=== PATIENT | female | born 1970 | race Caucasian/White ===

== ENCOUNTER 2016-05-27 14:55 | Emergency (ER) | payer OTHER ==
[~2016-05-27] VITALS: Wt 81.6 kg
[~2016-05-27 14:55] MED LIST: ABILIFY10 MG PO; AMBIEN10 MG PO; AMOXICILLIN500 M2 PO; AMOXICILLIN500 MG PO; AMOXIL500 MG PO; ANAPROX DS550 MG PO; ANTIDIARRHEAL; ATARAX25 MG PO; ATIVAN1 MG PO; AUGMENTIN 875 M1 TAB PO; AUGMENTIN 875875 MG PO; BACTRIM DS 8001 TA1 PO; BENADRYL25 MG PO; BIAXIN500 MG PO; CIPRO500 MG PO; CLARITIN10 MG PO; CORTISPORIN 1%7.5 M1 OP; CYMBALTA30 M1 PO; DAYPRO600 M1 PO; DICLOFENAC SOD50 MG PO; DURICEF500 MG PO; ELIMITE 5%60 GM PO; FIORICET 325 MG1 TAB PO; FLEXERIL10 MG PO; FLONASE ALLERG9.9 ML NS; GABAPENTIN300 MG PO; GLUCOTROL5 MG; GLUCOTROL5 MG PO; Glucotrol PO; HYDROCODONE BIT1 T11 PO; IBU-8800 MG PO; IBU600 MG PO; IBU800 M1 PO; K-Dur 20MEQ20 MEQ PO; KEFLEX500 MG PO; LANTUS100 U/ML; LANTUS100 U/ML SC; LISINOPRIL10 MG PO; LISINOPRIL2.5 MG PO; LOPRESSOR50 M1 PO; LOPRESSOR50 MG PO; MEDROL DOSEPAK4 MG PO; METFORMIN500 MG; METFORMIN850 MG PO; METOPROLOL SR50 MG PO; METOPROLOL100 MG PO; MOTRIN600 MG PO; MOTRIN800 MG PO; NAPROSYN500 MG PO; NAPROXEN220 MG PO; NEURONTIN300 MG PO; NOVOLIN 701 UNIT/0.0 SC; NOVOLOG 70/30 M10 ML SC; Nystatin Ointme30 GM T; PRAVACHOL40 MG PO; PROVENTIL0.09 MG/AC IH; SEPTRA DS 800 M1 TAB PO; TESSALON PERLE200 MG PO; TRAMADOL HCL50 MG PO; TYLENOL W/CODEI1 TA2 PO; ULTRAM50 MG PO; VICODIN 5/500 505 MG PO; VICODIN 500 MG-1 TAB PO; VOLTAREN50 M1 PO; WELLBUTRIN XL150 MG PO; WELLBUTRIN XL300 MG PO; Wellbutrin Xl150 MG PO; ZESTRIL5 MG PO; ZITHROMAX Z PA250 MG PO; ZITHROMAX250 MG PO; ZYRTEC10 M1 PO; ZYRTEC10 MG PO; ZYVOX600 MG PO
[2016-05-27] MEDS ORDERED: FLONASE ALLERG9.9 ML NAS (15:16)
[2016-05-27] MEDS ORDERED: VIBRAMYCIN100 MG PO (15:16)
[2016-05-27] MEDS ORDERED: AMOXICILLIN500 M2 PO (16:00)
== END 2016-05-27 16:06 | disposition home or self-care (01) ==
LOC: ED 14:55
DX: J02.0 Streptococcal pharyngitis (principal); Z90.49 Acquired absence of other specified parts of digestive tract; Z79.4 Long term (current) use of insulin; Z91.030 Bee allergy status; Z91.018 Allergy to other foods

== ENCOUNTER 2016-07-15 15:22 | Emergency (ER) | payer OTHER ==
[~2016-07-15] VITALS: Ht 167.6 cm; Wt 81.6 kg
[~2016-07-15 15:22] MED LIST changes: +FLONASE ALLERG9.9 ML NAS; +VIBRAMYCIN100 MG PO
[2016-07-15] MEDS ORDERED: HYDROCODONE BIT1 T11 PO (18:05)
[2016-07-15] MEDS ORDERED: CLINDAMYCIN HC300 MG PO (18:05)
== END 2016-07-15 16:03 | disposition home or self-care (01) ==
LOC: ED 15:22
DX: L03.012 Cellulitis of left finger (principal); Z90.49 Acquired absence of other specified parts of digestive tract; Z90.710 Acquired absence of both cervix and uterus; Z98.890 Other specified postprocedural states; Z91.030 Bee allergy status; Z88.8 Allergy status to other drugs, medicaments and biological substances

== ENCOUNTER 2016-08-15 16:03 | Emergency (ER) | payer OTHER ==
[~2016-08-15] VITALS: Wt 90.7 kg
[~2016-08-15 16:03] MED LIST changes: +CLINDAMYCIN HC300 MG PO
== END 2016-08-15 17:16 | disposition home or self-care (01) ==
LOC: ED 16:03
DX: M25.512 Pain in left shoulder (principal); Z91.030 Bee allergy status; Z88.8 Allergy status to other drugs, medicaments and biological substances; Z91.018 Allergy to other foods; Z79.899 Other long term (current) drug therapy

== ENCOUNTER 2016-09-28 13:17 | Emergency (ER) | payer OTHER ==
[~2016-09-28] VITALS: Wt 90.7 kg
== END 2016-09-28 14:50 | disposition home or self-care (01) ==
LOC: ED 13:17
DX: S90.122A Contusion of left lesser toe(s) without damage to nail, initial encounter (principal); E13.10 Other specified diabetes mellitus with ketoacidosis without coma; Z91.030 Bee allergy status; Z88.8 Allergy status to other drugs, medicaments and biological substances; Z91.018 Allergy to other foods; Z79.899 Other long term (current) drug therapy; Z79.4 Long term (current) use of insulin; W01.0XXA Fall on same level from slipping, tripping and stumbling without subsequent striking against object, initial encounter; Y93.89 Activity, other specified; Y92.89 Other specified places as the place of occurrence of the external cause; Y99.8 Other external cause status

== ENCOUNTER 2017-01-19 09:58 | Emergency (ER) | payer OTHER ==
[~2017-01-19] VITALS: Ht 167.6 cm; Wt 77.1 kg
[2017-01-19] MEDS ORDERED: ZYRTEC10 MG PO ×2 (10:24→10:29)
[2017-01-19] MEDS ORDERED: ZITHROMAX250 MG PO ×2 (10:24→10:29)
== END 2017-01-19 10:50 | disposition home or self-care (01) ==
LOC: ED 09:58
DX: J01.90 Acute sinusitis, unspecified (principal); Z91.030 Bee allergy status; Z88.8 Allergy status to other drugs, medicaments and biological substances; Z90.710 Acquired absence of both cervix and uterus; Z90.49 Acquired absence of other specified parts of digestive tract

== ENCOUNTER 2017-02-05 16:51 | Emergency (ER) | payer OTHER ==
[~2017-02-05] VITALS: Wt 78.0 kg
[2017-02-05] MEDS ORDERED: CYCLOBENZAPRINE5 M3 PO (18:42)
== END 2017-02-05 17:33 | disposition home or self-care (01) ==
LOC: ED 16:51
DX: S09.90XA Unspecified injury of head, initial encounter (principal); M62.830 Muscle spasm of back; Z90.49 Acquired absence of other specified parts of digestive tract; Z98.890 Other specified postprocedural states; Z79.899 Other long term (current) drug therapy; Z79.4 Long term (current) use of insulin; Z91.030 Bee allergy status; Z91.018 Allergy to other foods; Z88.8 Allergy status to other drugs, medicaments and biological substances; W22.8XXA Striking against or struck by other objects, initial encounter; Y93.89 Activity, other specified; Y92.89 Other specified places as the place of occurrence of the external cause; Y99.9 Unspecified external cause status

== ENCOUNTER 2017-02-09 16:24 | Emergency (ER) | payer OTHER ==
[~2017-02-09] VITALS: Ht 167.6 cm; Wt 78.0 kg
[~2017-02-09 16:24] MED LIST changes: +CYCLOBENZAPRINE5 M3 PO
[2017-02-09] MEDS ORDERED: Motrin,Rufen800 MG PO (17:39)
== END 2017-02-09 17:45 | disposition home or self-care (01) ==
LOC: ED 16:24
DX: S93.602A Unspecified sprain of left foot, initial encounter (principal); Z90.49 Acquired absence of other specified parts of digestive tract; Z98.890 Other specified postprocedural states; Z90.710 Acquired absence of both cervix and uterus; Z79.4 Long term (current) use of insulin; Z91.030 Bee allergy status; Z88.8 Allergy status to other drugs, medicaments and biological substances; Z91.018 Allergy to other foods; X50.1XXA Overexertion from prolonged static or awkward postures, initial encounter; Y93.89 Activity, other specified; Y92.89 Other specified places as the place of occurrence of the external cause; Y99.9 Unspecified external cause status

== ENCOUNTER 2017-02-24 10:52 | Emergency (ER) | payer OTHER ==
[~2017-02-24] VITALS: Ht 167.6 cm; Wt 80.7 kg
[~2017-02-24 10:52] MED LIST changes: +Motrin,Rufen800 MG PO
[2017-02-24] MEDS ORDERED: ASPIR LOW81 MG PO (11:01)
[2017-02-24] MEDS ORDERED: CYMBALTA20 M1 PO (11:02)
[2017-02-24] MEDS ORDERED: ABILIFY2 MG PO (11:02)
[2017-02-24] MEDS ORDERED: NEURONTIN100 MG PO (11:02)
== END 2017-02-24 12:35 | disposition home or self-care (01) ==
LOC: ED 10:52
DX: S60.011A Contusion of right thumb without damage to nail, initial encounter (principal); Z90.49 Acquired absence of other specified parts of digestive tract; Z90.710 Acquired absence of both cervix and uterus; Z98.890 Other specified postprocedural states; Z79.82 Long term (current) use of aspirin; Z79.4 Long term (current) use of insulin; Z79.899 Other long term (current) drug therapy; Z91.030 Bee allergy status; Z91.018 Allergy to other foods; Z88.8 Allergy status to other drugs, medicaments and biological substances; W01.198A Fall on same level from slipping, tripping and stumbling with subsequent striking against other object, initial encounter; Y93.89 Activity, other specified; Y92.89 Other specified places as the place of occurrence of the external cause; Y99.9 Unspecified external cause status

== ENCOUNTER 2017-03-24 13:18 | Emergency (ER) | payer OTHER ==
[~2017-03-24] VITALS: Ht 167.6 cm; Wt 78.5 kg
[~2017-03-24 13:18] MED LIST changes: +ABILIFY2 MG PO; +ASPIR LOW81 MG PO; +CYMBALTA20 M1 PO; +NEURONTIN100 MG PO
[2017-03-24 14:12] LABS: BASO # 0.1 10*3/uL (0.0-0.1); BASO % 0.6 % (0.0-1.0); EOS # 0.2 10*3/uL (0.0-0.4); EOS % 2.1 % (1.0-4.0); HEMATOCRIT 35.1 % (37.0-47.0); HEMOGLOBIN 12.2 g/dl (12.0-16.0); LYMPH % 21.3 % (27.0-41.0); MEAN CELL VOLUME 94.9 fl (81.0-99.0); MEAN CORPUSCULAR HGB CONC 34.8 g/dl (33.0-37.0); MEAN PLATELET VOLUME 10.1 fl (9.6-12.3); MONO # 0.7 10*3/uL (0.1-1.0); MONO % 7.2 % (3.0-9.0); NEUT # 6.6 10*3/uL (2.3-7.9); NEUT % 68.6 % (47.0-73.0); PLATELET COUNT AUTOMATED 205 10*3/uL (130-400); WHITE BLOOD COUNT 9.6 10*3/uL (4.8-10.8)
[2017-03-24 14:33] LABS: BUN 18 mg/dl (7-24); CHLORIDE 101 mmol/L (98-107); CREATININE 0.76 mg/dL (0.55-1.02); POTASSIUM 4.2 mmol/L (3.5-5.1); SODIUM 138 mmol/L (136-145)
== END 2017-03-24 15:13 | disposition home or self-care (01) ==
LOC: ED 13:18
PROVIDERS: Emergency Medicine
DX: S92.515A Nondisplaced fracture of proximal phalanx of left lesser toe(s), initial encounter for closed fracture (principal); S79.922A Unspecified injury of left thigh, initial encounter; E11.65 Type 2 diabetes mellitus with hyperglycemia; Z79.4 Long term (current) use of insulin; Z79.84 Long term (current) use of oral hypoglycemic drugs; Z90.49 Acquired absence of other specified parts of digestive tract; Z79.82 Long term (current) use of aspirin; Z91.030 Bee allergy status; Z91.018 Allergy to other foods; W10.9XXA Fall (on) (from) unspecified stairs and steps, initial encounter; Y93.89 Activity, other specified; Y92.099 Unspecified place in other non-institutional residence as the place of occurrence of the external cause; Y99.8 Other external cause status

== ENCOUNTER 2017-04-10 11:10 | Emergency (ER) | payer OTHER ==
[~2017-04-10] VITALS: Ht 167.6 cm; Wt 78.5 kg
[2017-04-10] MEDS ORDERED: LIPITOR20 MG PO (11:28)
[2017-04-10] MEDS ORDERED: CLINDAMYCIN HC300 MG PO (12:38)
== END 2017-04-10 12:47 | disposition home or self-care (01) ==
LOC: ED 11:10
DX: K08.89 Other specified disorders of teeth and supporting structures (principal); Z91.030 Bee allergy status; Z91.018 Allergy to other foods; Z88.8 Allergy status to other drugs, medicaments and biological substances; Z79.82 Long term (current) use of aspirin; Z79.899 Other long term (current) drug therapy

== ENCOUNTER 2017-06-23 16:56 | Emergency (ER) | payer OTHER ==
[~2017-06-23] VITALS: Wt 99.8 kg
[~2017-06-23 16:56] MED LIST changes: +LIPITOR20 MG PO
[2017-06-23] MEDS ORDERED: NAPROSYN500 MG PO (17:02)
[2017-06-23] MEDS ORDERED: AMOXICILLIN500 M2 PO (17:02)
== END 2017-06-23 17:21 | disposition home or self-care (01) ==
LOC: ED 16:56
DX: S01.512A Laceration without foreign body of oral cavity, initial encounter (principal); K08.89 Other specified disorders of teeth and supporting structures; Z90.49 Acquired absence of other specified parts of digestive tract; Z90.710 Acquired absence of both cervix and uterus; Z79.82 Long term (current) use of aspirin; Z79.4 Long term (current) use of insulin; Z88.8 Allergy status to other drugs, medicaments and biological substances; Z91.018 Allergy to other foods; X58.XXXA Exposure to other specified factors, initial encounter; Y93.89 Activity, other specified; Y92.89 Other specified places as the place of occurrence of the external cause; Y99.9 Unspecified external cause status

== ENCOUNTER 2017-07-29 11:23 | Emergency (ER) | payer OTHER ==
[~2017-07-29] VITALS: Ht 167.6 cm; Wt 81.6 kg
[2017-07-29] MEDS ORDERED: ZITHROMAX250 MG PO (12:27)
== END 2017-07-29 13:30 | disposition home or self-care (01) ==
LOC: ED 11:23
DX: H66.92 Otitis media, unspecified, left ear (principal); E11.9 Type 2 diabetes mellitus without complications; E78.00 Pure hypercholesterolemia, unspecified; I10 Essential (primary) hypertension; Z90.49 Acquired absence of other specified parts of digestive tract; Z90.710 Acquired absence of both cervix and uterus; Z79.82 Long term (current) use of aspirin; Z79.899 Other long term (current) drug therapy; Z79.4 Long term (current) use of insulin; Z88.8 Allergy status to other drugs, medicaments and biological substances

== ENCOUNTER 2017-09-11 19:24 | Emergency (ER) | payer OTHER ==
[~2017-09-11] VITALS: Ht 167.6 cm; Wt 89.8 kg
[2017-09-11] MEDS ORDERED: NAPROSYN500 MG PO (21:16)
== END 2017-09-11 21:21 | disposition home or self-care (01) ==
LOC: ED 19:24
DX: M25.511 Pain in right shoulder (principal); Z91.030 Bee allergy status; Z88.8 Allergy status to other drugs, medicaments and biological substances; Z91.018 Allergy to other foods; Z79.899 Other long term (current) drug therapy; Z79.82 Long term (current) use of aspirin

== ENCOUNTER → 2017-11-10 | Outpatient (CLI) | payer OTHER ==
[~2017-11-10] MED LIST changes: +OMNICEF300 MG PO; +PROAIR HFA8.5 GM INH; +TESSALON PERLE100 M1 PO
[2017-11-10 09:50] LABS: HEMATOCRIT 38.5 % (37.0-47.0); HEMOGLOBIN 12.9 g/dl (12.0-16.0); MEAN CELL VOLUME 95.5 fl (81.0-99.0); MEAN CORPUSCULAR HGB CONC 33.5 g/dl (33.0-37.0); MEAN PLATELET VOLUME 10.4 fl (9.6-12.3); RED BLOOD COUNT 4.03 10*6/uL (4.10-5.10); RED CELL DISTRI WIDTH 12.5 % (0-14.5); WHITE BLOOD COUNT 10.5 10*3/uL (4.8-10.8)
[2017-11-10 10:16] LABS: ALBUMIN 3.8 gm/dl (3.1-4.5); BUN 12 mg/dl (7-24); CHLORIDE 107 mmol/L (98-107); CHOLESTEROL 157 mg/dL (<200); CREATININE 0.78 mg/dL (0.55-1.02); POTASSIUM 4.3 mmol/L (3.5-5.1); SGOT/AST 22 IU/L (3-35); SGPT/ALT 38 U/L (12-78); SODIUM 141 mmol/L (136-145); TOTAL PROTEIN 7.5 gm/dL (6.4-8.2); TRIGLYCERIDES 237 mg/dl (<150); VLDL CHOLESTEROL 47 mg/dL (6-40)
[2017-11-10 10:24] LABS: ALKALINE PHOSPHATASE 150 U/L (45-117); HDL CHOLESTEROL 36 mg/dl (40-60); LDL CHOLESTEROL 74 mg/dL (9-159)
== END | disposition home or self-care (01) ==
LOC: LAB 09:17
PROVIDERS: Internal Medicine
DX: E11.9 Type 2 diabetes mellitus without complications (principal); I10 Essential (primary) hypertension; E55.9 Vitamin D deficiency, unspecified

== ENCOUNTER 2017-11-29 06:02 | Emergency (ER) | payer OTHER ==
[~2017-11-29] VITALS: Ht 167.6 cm; Wt 86.2 kg
[~2017-11-29 06:02] MED LIST changes: -PROAIR HFA8.5 GM INH; -TESSALON PERLE100 M1 PO
[2017-11-29] MEDS ORDERED: CLARITIN10 MG PO (06:49)
[2017-11-29] MEDS ORDERED: PROAIR HFA8.5 GM INH (06:49)
[2017-11-29] MEDS ORDERED: TESSALON PERLE100 M1 PO (06:49)
== END 2017-11-29 06:52 | disposition home or self-care (01) ==
LOC: ED 06:02
DX: J32.9 Chronic sinusitis, unspecified (principal); H92.09 Otalgia, unspecified ear; E11.9 Type 2 diabetes mellitus without complications; Z90.710 Acquired absence of both cervix and uterus; Z91.030 Bee allergy status; Z88.8 Allergy status to other drugs, medicaments and biological substances; Z91.018 Allergy to other foods; Z79.2 Long term (current) use of antibiotics; Z79.899 Other long term (current) drug therapy; Z79.82 Long term (current) use of aspirin; Z79.84 Long term (current) use of oral hypoglycemic drugs; Z90.49 Acquired absence of other specified parts of digestive tract

== ENCOUNTER 2018-08-18 05:07 | Emergency (ER) | payer OTHER ==
[~2018-08-18] VITALS: Ht 167.6 cm; Wt 91.2 kg
[~2018-08-18 05:07] MED LIST changes: +ATORVASTATIN CA20 M1 PO; +BASAG SOL SQ; +GLUCOTROL10 MG PO; +OMEPRAZOLE D/R20 MG PO; +PROAIR HFA8.5 GM INH; +TESSALON PERLE100 M1 PO
[2018-08-18] MEDS ORDERED: AUGMENTIN 875875 MG PO (06:30)
[2018-08-21] MEDS ORDERED: CLINDAMYCIN HC300 MG PO (23:36)
[2018-10-10] MEDS ORDERED: ROBITUSSIN5 ML PO (21:02)
[2018-10-10] MEDS ORDERED: TESSALON PERLE100 MG PO (21:02)
[2018-10-15] MEDS ORDERED: CLEOCIN HCL300 MG PO (21:05)
== END 2018-08-18 06:43 | disposition home or self-care (01) ==
LOC: ED 05:07
DX: H66.91 Otitis media, unspecified, right ear (principal); F31.9 Bipolar disorder, unspecified; I11.0 Hypertensive heart disease with heart failure; I50.9 Heart failure, unspecified; E78.00 Pure hypercholesterolemia, unspecified; E11.65 Type 2 diabetes mellitus with hyperglycemia; Z79.4 Long term (current) use of insulin; Z79.82 Long term (current) use of aspirin; Z87.891 Personal history of nicotine dependence; Z98.890 Other specified postprocedural states; Z90.710 Acquired absence of both cervix and uterus; Z90.49 Acquired absence of other specified parts of digestive tract; Z79.899 Other long term (current) drug therapy; Z91.030 Bee allergy status; Z88.8 Allergy status to other drugs, medicaments and biological substances; Z91.018 Allergy to other foods

== ENCOUNTER 2018-10-02 19:27 | Emergency (ER) | payer OTHER ==
[~2018-10-02] VITALS: Ht 167.6 cm; Wt 90.7 kg
[2018-10-02] MEDS ORDERED: PROAIR HFA8.5 GM INH (20:13)
[2018-10-02] MEDS ORDERED: TESSALON PERLE100 M1 PO (20:13)
[2018-10-02] MEDS ORDERED: PREDNISONE20 M1 PO (20:13)
== END 2018-10-02 20:16 | disposition home or self-care (01) ==
LOC: ED 19:27
DX: J40 Bronchitis, not specified as acute or chronic (principal); J02.9 Acute pharyngitis, unspecified; Z79.899 Other long term (current) drug therapy; Z79.82 Long term (current) use of aspirin; Z88.8 Allergy status to other drugs, medicaments and biological substances; Z87.891 Personal history of nicotine dependence; Z91.030 Bee allergy status; Z91.018 Allergy to other foods

== ENCOUNTER 2018-10-26 12:20 | Emergency (ER) | payer OTHER ==
[~2018-10-26] VITALS: Ht 170.1 cm; Wt 90.7 kg
[~2018-10-26 12:20] MED LIST changes: +CLEOCIN HCL300 MG PO; +PREDNISONE20 M1 PO; +ROBITUSSIN5 ML PO; +TESSALON PERLE100 MG PO
[2018-10-26] MEDS ORDERED: TRULICITY1.5 MG/0.5 SC (12:49)
[2018-10-26] MEDS ORDERED: LOPRESSOR100 M1 PO (13:31)
== END 2018-10-26 13:34 | disposition home or self-care (01) ==
LOC: ED 12:20
DX: I10 Essential (primary) hypertension (principal); Z76.0 Encounter for issue of repeat prescription; Z91.030 Bee allergy status; Z91.048 Other nonmedicinal substance allergy status; Z91.018 Allergy to other foods; Z88.8 Allergy status to other drugs, medicaments and biological substances; Z79.899 Other long term (current) drug therapy; Z79.82 Long term (current) use of aspirin; Z90.49 Acquired absence of other specified parts of digestive tract; Z90.710 Acquired absence of both cervix and uterus; Z87.891 Personal history of nicotine dependence

== ENCOUNTER 2018-12-17 11:57 | Emergency (ER) | payer OTHER ==
[~2018-12-17] VITALS: Wt 90.7 kg
[~2018-12-17 11:57] MED LIST changes: +LOPRESSOR100 M1 PO; +TRULICITY1.5 MG/0.5 SC
[2018-12-17] MEDS ORDERED: Motrin,Rufen800 MG PO (14:08)
[2018-12-17] MEDS ORDERED: NORCO 5-325 TA1 EACH PO (14:09)
== END 2018-12-17 14:14 | disposition home or self-care (01) ==
LOC: ED 11:57
DX: S60.041A Contusion of right ring finger without damage to nail, initial encounter (principal); E78.5 Hyperlipidemia, unspecified; E11.9 Type 2 diabetes mellitus without complications; I50.9 Heart failure, unspecified; I11.0 Hypertensive heart disease with heart failure; Z79.899 Other long term (current) drug therapy; Z79.82 Long term (current) use of aspirin; Z91.030 Bee allergy status; Z88.8 Allergy status to other drugs, medicaments and biological substances; Z91.018 Allergy to other foods; Z87.891 Personal history of nicotine dependence; W19.XXXA Unspecified fall, initial encounter; Y93.89 Activity, other specified; Y92.89 Other specified places as the place of occurrence of the external cause; Y99.8 Other external cause status

== ENCOUNTER 2019-01-25 16:12 | Emergency (ER) | payer OTHER ==
[~2019-01-25] VITALS: Ht 167.6 cm; Wt 86.6 kg
[~2019-01-25 16:12] MED LIST changes: +NORCO 5-325 TA1 EACH PO
[2019-01-25] MEDS ORDERED: Motrin,Rufen800 MG PO (18:02)
== END 2019-01-25 18:22 | disposition home or self-care (01) ==
LOC: ED 16:12
DX: S86.911A Strain of unspecified muscle(s) and tendon(s) at lower leg level, right leg, initial encounter (principal); S93.601A Unspecified sprain of right foot, initial encounter; E11.9 Type 2 diabetes mellitus without complications; I10 Essential (primary) hypertension; Z91.030 Bee allergy status; Z91.048 Other nonmedicinal substance allergy status; Z88.8 Allergy status to other drugs, medicaments and biological substances; Z91.018 Allergy to other foods; Z79.899 Other long term (current) drug therapy; Z79.82 Long term (current) use of aspirin; Z90.710 Acquired absence of both cervix and uterus; Z90.49 Acquired absence of other specified parts of digestive tract; Z87.891 Personal history of nicotine dependence; W01.0XXA Fall on same level from slipping, tripping and stumbling without subsequent striking against object, initial encounter; Y93.01 Activity, walking, marching and hiking; Y92.89 Other specified places as the place of occurrence of the external cause; Y99.8 Other external cause status

== ENCOUNTER 2019-03-21 18:57 | Inpatient (IN) | payer OTHER ==
[~2019-03-21] VITALS: Ht 167.6 cm; Wt 86.8 kg
[2019-03-21 19:12] VITALS: BP 157/94
[2019-03-21 19:38] LABS: BASO % 0.3 % (0.0-1.0); EOS # 0.1 10*3/uL (0.0-0.4); EOS % 0.4 % (1.0-4.0); HEMATOCRIT 36.7 % (37.0-47.0); HEMOGLOBIN 12.3 g/dl (12.0-16.0); LYMPH % 8.2 % (27.0-41.0); MEAN CELL VOLUME 92.2 fl (81.0-99.0); MEAN CORPUSCULAR HGB 30.9 pg (27.0-31.0); MEAN CORPUSCULAR HGB CONC 33.5 g/dl (33.0-37.0); MONO # 1.1 10*3/uL (0.1-1.0); MONO % 8.4 % (3.0-9.0); NEUT # 10.5 10*3/uL (2.3-7.9); NEUT % 82.4 % (47.0-73.0); PLATELET COUNT AUTOMATED 254 10*3/uL (130-400); RED BLOOD COUNT 3.98 10*6/uL (4.10-5.10); RED CELL DISTRI WIDTH 13.5 % (0-14.5); WHITE BLOOD COUNT 12.7 10*3/uL (4.8-10.8)
[2019-03-21 19:55] LABS: ALBUMIN 3.3 gm/dl (3.1-4.5); CREATININE 1.29 mg/dL (0.55-1.02); TOTAL PROTEIN 8.4 gm/dL (6.4-8.2)
[2019-03-21 20:00] VITALS: BP 150/97
[2019-03-21 21:46] LABS: INTERNATIONAL NORM RATIO 0.9 (2.0-3.5)
[2019-03-21 21:59] LABS: TROPONIN I < 0.015 ng/ml (<0.045)
[2019-03-21 22:30] VITALS: BP 150/97
--- NOTE | 2019-03-21 22:30 | NUR ---
A 48, admitted to 4E, under the services of HUBER Posada DO with a diagnosis of SEPSIS PNEUMONITIS. Chief complaint is CHILLS, N/V, COUGH, LEAL. Patient arrived via stretcher from ER. Monitor applied. Initial assessment completed. Vital signs taken and recorded. HUBER POSADA DO notified of admission to the unit. Orders received. See assessment for past medical history, medications and allergies. Patient and/or family oriented to unit. Clothing/patient valuable form completed. ALENA JUNG
--- NOTE | 2019-03-21 22:41 | NUR ---
Pt denies any wounds at this time.
[2019-03-21] MEDS ORDERED: HYDROCHLOROTHIA25 M1 PO (22:59)
[2019-03-21] MEDS ORDERED: VITAMIN D3125 MCG PO (23:00)
--- NOTE | 2019-03-21 23:02 | NUR ---
PATIENT HAS SCABS TO BLE KNEES AND SCABBED AREA TO BRIDGE OF NOSE FROM FALL ON ICE.
[2019-03-22] VITALS: BP 135/96
--- NOTE | 2019-03-22 03:59 | NUR ---
MEDICATIONS APPEAR EFFECTIVE FOR PAIN AND NAUSEA, PT RESTING.
--- NOTE | 2019-03-22 07:00 | NUR ---
JENNIFER DUONG [id number] Please refer to the physician's history and physical for past medical history, comorbid conditions, and allergies. Diagnosis: SEPSIS PNEUMONITIS Negrito Score: 22,LOW OR NO RISK WOUND DESCRIPTIONS: Wound Number: 1 Location of the wound: RIGHT KNEE Type of wound: ABRASION Thickness: Partial Size: 4.0CM X 4.4CM X 0.1CM Tunneling: NONE Undermining: NONE Sinus Tract: NONE Presence of Exudate: Serosanguineous Amount: Light Color: Red Odor: None Periwound Skin Appearance: Erythema Wound edges: APPROXIMATED Pain (associated with wound): NONE AT TIME OF ASSESSMENT How does patient state this happened? PT STATED THAT SHE FELL AND THIS OCCURED Wound Number: 2 Location of the wound: LEFT KNEE Type of wound: ABRASION Thickness: Partial Size: 1.6CM X 4.3CM X 0.1CM Tunneling: NONE Undermining: NONE Sinus Tract: NONE Presence of Exudate: Serosanguineous Amount: Light Color: Red Odor: None Periwound Skin Appearance: Erythema Wound edges: APPROXIMATED Pain (associated with wound): NONE AT TIME OF ASSESSMENT How does patient state this happened? PT STATED THAT SHE FELL AND THIS OCCURED Wound Number: 3 Location of the wound: BRIDGE OF NOSE Type of wound: ABRASION Thickness: Partial Size: 0.9CM X 0.2CM X <0.1CM Tunneling: NONE Undermining: NONE Sinus Tract: NONE Presence of Exudate: NONE Amount: None Color: Red Odor: None Periwound Skin Appearance: Normal Wound edges: APPROXIMATED Pain (associated with wound): NONE AT TIME OF ASSESSMENT How does patient state this happened? PT STATED THAT SHE FELL AND THIS OCCURED Wound Number: 4 Location of the wound: LEFT BREAST Thickness: Full Size: 1.0CM X 2.0CM X 0.1CM Tunneling: NONE Undermining: NONE Sinus Tract: NONE Presence of Exudate: Serosanguineous Amount: Light Color: Red, YELLOW Odor: None Periwound Skin Appearance: multiple scars noted Wound edges: APPROXIMATED Pain (associated with wound): NONE AT TIME OF ASSESSMENT How does patient state this happened? PT STATED THIS IS FROM MEDICATION CHANGES AND BELIEVES IT COULD BE FROM THE ROBITUSSIN Patient refused this nurse to view right breast or buttocks patient was guarded during assessment kept stating she was cold at time of assessment. Surface the patient is resting on: Isoflex SKIN PREVENTION RECOMMENDATION: 1. Pressure redistribution support surface as appropriate 2. Elevate heels 3. Remove boots/TEDS every shift and reapply 4. Head of bed 30 degrees as tolerated 5. Assess nutrition and hydration 6. Manage moisture 7. Avoid the use of containment devices while in bed 8. Use absorptive products on surfaces limit layers of linens on bed 9. Turn and reposition every 1-2 hours in bed and every 1 hour in chair as tolerated 10. Weight shifts every 15 minutes while up in chair 11. Offloading with pillows or device to keep heels elevated off bed 12. Monitor skin at least every shift 13. Inspect under medical devices twice a day WOUND TREATMENT RECOMMENDATIONS: Partial thickness guidelines: Cleanse right knee, left knee and left breast with nss and apply sureprep around the wound therahoney to wound bed and cover with optifoam gentle every 2 days and prn for soiling. Partial thickness guidelines: Cleanse bridge of nose with nss and apply sureprep around the wound therahoney to wound bed and cover with bandaid every 2 days and prn for soiling. Patient stated she will care for these areas when she returns home with her son and doesn't want to follow up in an outpatient center.
[2019-03-22 07:02] LABS: BASO % 0.3 % (0.0-1.0); EOS # 0.1 10*3/uL (0.0-0.4); EOS % 0.7 % (1.0-4.0); HEMATOCRIT 35.8 % (37.0-47.0); HEMOGLOBIN 11.9 g/dl (12.0-16.0); LYMPH # 1.6 10*3/uL (1.3-4.4); LYMPH % 16.8 % (27.0-41.0); MEAN CORPUSCULAR HGB 30.6 pg (27.0-31.0); MEAN CORPUSCULAR HGB CONC 33.2 g/dl (33.0-37.0); MEAN PLATELET VOLUME 11.3 fl (9.6-12.3); MONO # 0.9 10*3/uL (0.1-1.0); MONO % 9.6 % (3.0-9.0); NEUT % 72.5 % (47.0-73.0); PLATELET COUNT AUTOMATED 255 10*3/uL (130-400); RED BLOOD COUNT 3.89 10*6/uL (4.10-5.10); RED CELL DISTRI WIDTH 13.9 % (0-14.5); WHITE BLOOD COUNT 9.6 10*3/uL (4.8-10.8)
[2019-03-22 07:21] LABS: ALBUMIN 2.9 gm/dl (3.1-4.5); BUN 12 mg/dl (7-24); CHLORIDE 100 mmol/L (98-107); CHOLESTEROL 193 mg/dL (<200); CREATININE 0.81 mg/dL (0.55-1.02); POTASSIUM 3.5 mmol/L (3.5-5.1); SGOT/AST 97 IU/L (3-35); SGPT/ALT 113 U/L (12-78); SODIUM 138 mmol/L (136-145); TRIGLYCERIDES 262 mg/dl (<150); VLDL CHOLESTEROL 52 mg/dL (6-40)
[2019-03-22 07:32] LABS: FREE T4 1.61 ng/dl (0.76-1.46); HDL CHOLESTEROL 17 mg/dl (40-60); LDL CHOLESTEROL 124 mg/dL (9-159)
[2019-03-22 07:33] LABS: ALKALINE PHOSPHATASE 1036 U/L (45-117)
[2019-03-22 08:00] VITALS: BP 146/96
--- NOTE | 2019-03-22 09:00 | NUR ---
Sewing Machine Mechanic in to talk to patient. Patient states lives at home with family. There are 4 steps in the home. Physician: carmella frederick [facility] Home health services: none Patient's level of ADLs: INDEPENDENT Patient has working utilities: all working DME: none Follow-up physician's appointment after d/c: will be made by hospitalist nurse director upon discharge Does patient want to access PORTAL?: no Discharge plan discussed with patient, she lives at home with family, she states she is independent in adls and ambulation she states she will return home when medically stable and denies any home needs, case management will follow. PORFIRIO MAKI
--- NOTE | 2019-03-22 09:21 | NUR ---
Dr. Sanchez notified of wound care recommendations.
[2019-03-22 12:00] VITALS: BP 126/74
--- NOTE | 2019-03-22 12:56 | NUR ---
PT STATES THAT SHE DOES NOT WANT TO SEE THE GI WHILE SHE IS HERE. SHE STATES THAT SHE FEELS FINE NOW AND THAT SHE JUST WANTS TO GO HOME. I MADE DR HORN AWARE OF THIS.
--- NOTE | 2019-03-22 14:06 | NUR ---
patient wanting to leave AMA. patient aware of the consequences of leaving prior to discharge. dr. Sanchez notified. AMA paper signed. heplock removed from left arm, chief passenger ship steward/stewardess removed.
== END 2019-03-22 14:06 | disposition left against medical advice (07) | DRG 720 ==
LOC: ED 18:57 → EDHOLD 21:19 → 4E 21:19
PROVIDERS: Internal Medicine; Physician Assistant; ADMIT Internal Medicine
DX: A41.9 Sepsis, unspecified organism (principal); J18.9 Pneumonia, unspecified organism; N17.0 Acute kidney failure with tubular necrosis; I50.32 Chronic diastolic (congestive) heart failure; R65.20 Severe sepsis without septic shock; R74.0 Nonspecific elevation of levels of transaminase and lactic acid dehydrogenase [LDH]; E80.6 Other disorders of bilirubin metabolism; E87.1 Hypo-osmolality and hyponatremia; E78.5 Hyperlipidemia, unspecified; I11.0 Hypertensive heart disease with heart failure; E44.1 Mild protein-calorie malnutrition; J45.909 Unspecified asthma, uncomplicated; G89.29 Other chronic pain; K21.9 Gastro-esophageal reflux disease without esophagitis; E66.9 Obesity, unspecified; F31.9 Bipolar disorder, unspecified; E87.6 Hypokalemia; Z53.29 Procedure and treatment not carried out because of patient's decision for other reasons; E87.8 Other disorders of electrolyte and fluid balance, not elsewhere classified; E11.65 Type 2 diabetes mellitus with hyperglycemia; R74.8 Abnormal levels of other serum enzymes; Z79.4 Long term (current) use of insulin; Z91.030 Bee allergy status; Z88.8 Allergy status to other drugs, medicaments and biological substances; Z91.018 Allergy to other foods; Z91.09 Other allergy status, other than to drugs and biological substances; Z90.49 Acquired absence of other specified parts of digestive tract; Z90.710 Acquired absence of both cervix and uterus; Z87.891 Personal history of nicotine dependence; Z82.49 Family history of ischemic heart disease and other diseases of the circulatory system; Z82.3 Family history of stroke; Z91.81 History of falling; Z79.899 Other long term (current) drug therapy; Z79.82 Long term (current) use of aspirin; Z68.30 Body mass index [BMI] 30.0-30.9, adult

== ENCOUNTER 2019-04-18 16:07 | Emergency (ER) | payer OTHER ==
[~2019-04-18] VITALS: Ht 167.6 cm; Wt 82.6 kg
[~2019-04-18 16:07] MED LIST changes: +HYDROCHLOROTHIA25 M1 PO; +VITAMIN D3125 MCG PO
[2019-04-18] MEDS ORDERED: OFLOXACIN OTIC5 ML OPH (17:45)
== END 2019-04-18 17:37 | disposition home or self-care (01) ==
LOC: ED 16:07
DX: H61.21 Impacted cerumen, right ear (principal); E11.9 Type 2 diabetes mellitus without complications; I10 Essential (primary) hypertension; Z90.710 Acquired absence of both cervix and uterus; Z91.030 Bee allergy status; Z91.048 Other nonmedicinal substance allergy status; Z88.8 Allergy status to other drugs, medicaments and biological substances; Z91.018 Allergy to other foods; Z79.899 Other long term (current) drug therapy; Z79.82 Long term (current) use of aspirin; Z87.891 Personal history of nicotine dependence

== ENCOUNTER 2019-06-19 10:50 | Inpatient (IN) | payer OTHER ==
[~2019-06-19] VITALS: Ht 167.6 cm; Wt 77.1 kg
[2019-06-19] VITALS (7 sets, daily range): BP systolic 85–120; BP diastolic 52–88
[~2019-06-19 10:50] MED LIST changes: +OFLOXACIN OTIC5 ML OPH
[2019-06-19 11:53] LABS: BASO # 0.1 10*3/uL (0.0-0.1); BASO % 0.4 % (0.0-1.0); EOS # 0.1 10*3/uL (0.0-0.4); EOS % 0.5 % (1.0-4.0); LYMPH # 2.2 10*3/uL (1.3-4.4); LYMPH % 15.6 % (27.0-41.0); MEAN CELL VOLUME 89.8 fl (81.0-99.0); MEAN CORPUSCULAR HGB 28.9 pg (27.0-31.0); MEAN CORPUSCULAR HGB CONC 32.2 g/dl (33.0-37.0); MEAN PLATELET VOLUME 10.7 fl (9.6-12.3); NEUT # 10.5 10*3/uL (2.3-7.9); NEUT % 76.1 % (47.0-73.0); NUCLEATED RED BLOOD CELL 0.1 % (0.0-0.0); PLATELET COUNT AUTOMATED 322 10*3/uL (130-400); RED BLOOD COUNT 4.12 10*6/uL (4.10-5.10); RED CELL DISTRI WIDTH 14.4 % (0-14.5); WHITE BLOOD COUNT 13.8 10*3/uL (4.8-10.8)
[2019-06-19 12:14] LABS: ACT PARTIAL THROMBO TIME 35.6 SECONDS (20.0-32.1); INTERNATIONAL NORM RATIO 1.1 (2.0-3.5)
[2019-06-19 12:20] LABS: ALBUMIN 2.7 gm/dl (3.1-4.5); CREATININE 1.44 mg/dL (0.55-1.02); TOTAL PROTEIN 9.8 gm/dL (6.4-8.2)
[2019-06-19 12:30] LABS: POTASSIUM 2.3 mmol/L (3.5-5.1); TROPONIN I 0.095 ng/ml (<0.045)
--- NOTE | 2019-06-19 13:08 | NUR ---
CONTACTED NURSE AND SHE JUST WENT TO LUNCH SO SHE REQUESTED 30 MINUTES FOR HER TO GET BACK AND THEN I CAN TAKE THE PT UP.
--- NOTE | 2019-06-19 13:45 | NUR ---
A 49, admitted to , under the services of JACK Navarrete DO with a diagnosis of DIZZINESS, ARK, HYPOTENSION. Chief complaint is DIZZINESS. Patient arrived via ambulatory from ER. Monitor applied. Initial assessment completed. Vital signs taken and recorded. JACK NAVARRETE DO notified of admission to the unit. Orders received. See assessment for past medical history, medications and allergies. Patient and/or family oriented to unit. [facility] visitation policy reviewed. Clothing/patient valuable form completed. LINO PARKS
[2019-06-19] MEDS ORDERED: GLUCOPHAGE1000 MG PO (15:17)
[2019-06-19] MEDS ORDERED: BASAG SOL IJ (15:18)
[2019-06-19] MEDS ORDERED: TRINTELLIX20 MG PO (15:23)
--- NOTE | 2019-06-19 15:25 | NUR ---
DR. YEN'S OFFICE NOTIFIED OF CONSULT.
--- NOTE | 2019-06-19 22:00 | NUR ---
PATIENTS FINGERSTICK BGM IS 151. PATIENT DOES NOT WANT INSULING D/T BGM BEING RECENTLY LOW AND DOES NOT WANT TO "BOTTOM OUT" IN THE AM.
[2019-06-20] VITALS (7 sets, daily range): BP systolic 106–136; BP diastolic 70–92
--- NOTE | 2019-06-20 06:03 | NUR ---
DR. HORN INFORMED OF CH TROP OF 0.072. NO NEW ORDERS AT THIS TIME.
[2019-06-20 06:13] LABS: BASO # 0.1 10*3/uL (0.0-0.1); BASO % 0.5 % (0.0-1.0); EOS # 0.1 10*3/uL (0.0-0.4); EOS % 0.9 % (1.0-4.0); HEMATOCRIT 33.7 % (37.0-47.0); LYMPH # 2.1 10*3/uL (1.3-4.4); LYMPH % 19.8 % (27.0-41.0); MEAN CELL VOLUME 90.3 fl (81.0-99.0); MEAN PLATELET VOLUME 10.8 fl (9.6-12.3); MONO % 9.3 % (3.0-9.0); NEUT # 7.4 10*3/uL (2.3-7.9); NEUT % 69.2 % (47.0-73.0); PLATELET COUNT AUTOMATED 251 10*3/uL (130-400); RED BLOOD COUNT 3.73 10*6/uL (4.10-5.10); RED CELL DISTRI WIDTH 14.6 % (0-14.5); WHITE BLOOD COUNT 10.7 10*3/uL (4.8-10.8)
[2019-06-20 06:20] LABS: ALBUMIN 2.5 gm/dl (3.1-4.5); POTASSIUM 2.6 mmol/L (3.5-5.1)
[2019-06-20 06:35] LABS: BILIRUBIN, DIRECT 1.2 mg/dL (0.0-0.2); CREATININE 1.21 mg/dL (0.55-1.02); FREE T4 1.47 ng/dl (0.76-1.46); PHOSPHOROUS 3.4 mg/dL (2.5-4.9); THYROID STIM HORMONE (HS) 0.78 uIU/ml (0.358-4.75); TOTAL PROTEIN 8.9 gm/dL (6.4-8.2)
--- NOTE | 2019-06-20 07:02 | NUR ---
INFORMED OF +BC OF AEROBIC OF GNB. STATED TO REPEAT BLOOD CULTURES.
[2019-06-20 07:45] LABS: VITAMIN D, 25-HYDROXY 77.8 ng/mL (30-100)
--- NOTE | 2019-06-20 09:30 | NUR ---
Plush Cutter in to talk to patient. Patient states lives at home with son. There are 16 steps in the home. Physician: carmella frederick [facility]: [facility] Home health services: none Patient's level of ADLs: INDEPENDENT Patient has working utilities: all working DME: cane Follow-up physician's appointment after d/c: will be made by hospitalist nurse director upon discharge Does patient want to access PORTAL?: no Discharge plan discussed with patient, she states she lives at home with her son, she is independent in adls, is independent in ambulation, has a cane if needs to use it. she states she will return home when medically stable, discussed with her VNA and educated her on their services, she declines any services at this time, case management will follow. PORFIRIO MAKI
--- NOTE | 2019-06-20 10:40 | NUR ---
ORTHOSTATIC BP OBTAINED FOLLOWING: LYING BP 124/74 PULSE 92, SITTING BP 114/79 PULSE 98, STANDING BP 85/48 PULSE 97. SHE C/O "WOBBLING" WITH STANDING UP.
[2019-06-20 11:13] LABS: BILIRUBIN NEGATIVE (NEGATIVE); CLARITY CLOUDY (CLEAR); COLOR BROWN (YELLOW); GLUCOSE 1+ (NEGATIVE); KETONE NEGATIVE (NEGATIVE)
[2019-06-20 11:14] LABS: BLOOD 3+ (NEGATIVE); LEUKO ESTERASE TRACE (NEGATIVE); NITRITE POSITIVE (NEGATIVE); PH 6.5 (5.0-9.0); UROBILINOGEN 0.2 E.U./dl (0.2-1.0)
[2019-06-20 11:17] LABS: RBC TNTC rbc/hpf (0-2)
[2019-06-20 11:19] LABS: BACTERIA 2+; EPITHELIAL CELLS 31-40; WBC 31-40 wbc/hpf (0-5)
--- NOTE | 2019-06-20 14:47 | NUR ---
OBTAINED ORTHOSTATIC BP FOLLOWS: LYING BP 118/74 PULSE 90, SITTING BP 115/81 PULSE 97, STANDING BP 87/60 PULSE 102. PAITENT C/O "WOBBLING" WITH STANDING, REQUIRES SOMETHING TO HOLD ONTO WHEN FIRST STANDING UP.
--- NOTE | 2019-06-20 19:17 | NUR ---
DR. SUÁREZ NOTIFIED OF MOST RECENT K+ RESULT AFTER ORDERED SUPPLEMENTATION.
[2019-06-21] VITALS: BP 109/73
--- NOTE | 2019-06-21 02:53 | NUR ---
Patient resting quietly with no c/o discomfort. Respirations easy and regular. Vital signs stable. No overt distress. JEAN CARLOS OLVERA
--- NOTE | 2019-06-21 05:15 | NUR ---
PATIENT'S BLOOD SUGAR IS 65. NOTIFIED DR HORN THAT PATIENT IS NPO FOR A STRESS TEST TODAY. HE SAID IT WAS OKAY TO GIVE THE PATIENT SOME ORANGE JUICE.
[2019-06-21 06:06] LABS: ALBUMIN 2.4 gm/dl (3.1-4.5); BUN 19 mg/dl (7-24); CHLORIDE 96 mmol/L (98-107); CREATININE 1.05 mg/dL (0.55-1.02); PHOSPHOROUS 2.8 mg/dL (2.5-4.9); POTASSIUM 3.2 mmol/L (3.5-5.1); SGOT/AST 273 IU/L (3-35); SGPT/ALT 113 U/L (12-78); SODIUM 134 mmol/L (136-145); TOTAL PROTEIN 8.9 gm/dL (6.4-8.2)
--- NOTE | 2019-06-21 06:36 | NUR ---
POSITIVE BLOOD CULTURES FROM 06-19-2019 CALLED FROM [facility]. NOTIFIED DR HORN. REPEAT BLOOD CULTURES DRAWN ON THE .
[2019-06-21 06:46] LABS: ALKALINE PHOSPHATASE 2379 U/L (45-117)
[2019-06-21 08:00] VITALS: BP 110/54; BP 110/64
--- NOTE | 2019-06-21 08:08 | NUR ---
DR. TRUJILLO CALLED TO INQUIRE ABOUT POTASSIUM LEVEL THIS AM. PER DR. TRUJILLO, BOTH DOSES OF 25MEQ K-LYTE TABS ARE TO BE GIVEN PRIOR TO THE STRESS TEST.
--- NOTE | 2019-06-21 11:30 | NUR ---
BEDSIDE GLUCOSE RESULT 57, PATIENT C/O SHAKINESS FROM REMAINING NPO FOR STRESS TEST TODAY. ADMINISTERED AMP OF D50, PATIENT TO CARDIAC REHAB BY WHEELCHAIR AT THIS TIME, NOTIFIED CARDIAC REHAB STAFF OF THE BLOOD SUGAR RESULT, TREATMENT, AND THAT PATIENT NEEDS TO BE RE-TESTED FOR BLOOD SUGAR AT 12NOON.
--- NOTE | 2019-06-21 11:53 | NUR ---
case management talks with patient, she will return home when medically stable and denies any home needs
--- NOTE | 2019-06-21 11:54 | NUR ---
REPEAT BEDSIDE GLUCOSE RESULT 195 AT THIS TIME, OBTAINED THE TEST IN CARDIAC REHAB. NO FURTHER S/S HYPOGLYCEMIA AT THIS TIME, PER PATIENT.
--- NOTE | 2019-06-21 11:55 | NUR ---
RN FROM NURSING UNIT CHECKED BS GLUCOSE AND 195.
[2019-06-21 12:00] VITALS: BP 120/79
--- NOTE | 2019-06-21 12:00 | NUR ---
INFORMED CONSENT OBTAINED FOR LEXISCAN NUCLEAR STRESS TEST WITH DR. TRUJILLO. RESTING EKG NSR WITH A RESTING HR OF 88 WITH BP OF 96/78. LUNGS: DIMINISHED BS IN BASES WITH SPO2 OF 97% ON ROOM AIR. PT COMPLETED A 1:00 LEXISCAN NUCLEAR STRESS TEST RECEIVING LEXISCAN 0.4 MG IV OVER 10 SECONDS. LEG LIFTS AND ISOMETRIC HAND EXERCISES PERFORMED DURING FIRST COUPLE MINUTES OF TESTING. HAD NO CHEST PAIN OR ANY EKG CHANGES. DID C/O NAUSEA THAT SUBSIDED IN RECOVERY. HAD A PEAK HR OF 114 WITH BP OF 90/58. LAST RECOVERY HR OF 108 WITH BP OF 106/60. IN RECOVERY HAD SIPS OF DIET COLA, WATER AND CRACKERS WITH PEANUT BUTTER. AWAITING SCANNING IN STABLE CONDITION.
--- NOTE | 2019-06-21 13:27 | NUR ---
PATIENT RETURNED FROM STRESS TEST, OBTAINING ORTHOSTATIC BLOOD PRESSURES, RESUMING DIET.
--- NOTE | 2019-06-21 13:48 | NUR ---
OBTAINED ORTHOSTATIC BP FOLLOWS: LYING BP 116/75 PULSE 103, SITTING BP 103/73 PULSE 110, STANDING BP 93/55, PULSE 110. PATIENT HAD SOME DIZZINESS WHEN FIRST STANDING UP, SUBSIDES WITH CONTINUED STANDING, PER PATIENT.
[2019-06-21] MEDS ORDERED: AMINOPHYLLIN200 MG PO (14:25)
--- NOTE | 2019-06-21 15:45 | NUR ---
Discharge instructions reviewed with patient. Patient receptive and verbalizes understanding. Follow-up care arranged. Written instructions given to patient. OFFICE NUMBERS TO ALL REQUIRED FOLLOW UP PHYSICIANS PROVIDED, PATIENT TO BILINGUAL LEGAL ASSISTANT RX FROM 3RD FLOOR PHARMACY. AB FUENTES
--- NOTE | 2019-06-21 16:00 | NUR ---
PATIENT DISCHARGED TO ER FRONT LOBBY BY WHEELCHAIR, ACCOMPANIED BY [facility], FOR TRANSPORT HOME BY PRIVATE VEHICLE WITH FAMILY.
== END 2019-06-21 16:48 | disposition home or self-care (01) | DRG 207 ==
LOC: ED 10:50 → EDHOLD 12:50 → 4E 12:50
PROVIDERS: Emergency Medicine; Registered Nurse; ADMIT Internal Medicine
PROC: 4A02XM4 Measurement of Cardiac Total Activity, External Approach (ICD-10-PCS; principal; 2019-06-21)
PROC: 3E073KZ Introduction of Other Diagnostic Substance into Coronary Artery, Percutaneous Approach (ICD-10-PCS; 2019-06-21)
DX: I95.2 Hypotension due to drugs (principal); N17.0 Acute kidney failure with tubular necrosis; I24.8 Other forms of acute ischemic heart disease; E87.6 Hypokalemia; E43 Unspecified severe protein-calorie malnutrition; I50.30 Unspecified diastolic (congestive) heart failure; N30.01 Acute cystitis with hematuria; J45.909 Unspecified asthma, uncomplicated; F31.9 Bipolar disorder, unspecified; G89.29 Other chronic pain; K21.9 Gastro-esophageal reflux disease without esophagitis; E78.5 Hyperlipidemia, unspecified; R74.0 Nonspecific elevation of levels of transaminase and lactic acid dehydrogenase [LDH]; R78.81 Bacteremia; E11.65 Type 2 diabetes mellitus with hyperglycemia; I25.10 Atherosclerotic heart disease of native coronary artery without angina pectoris; E87.1 Hypo-osmolality and hyponatremia; B96.1 Klebsiella pneumoniae [K. pneumoniae] as the cause of diseases classified elsewhere; T50.995A Adverse effect of other drugs, medicaments and biological substances, initial encounter; Y92.89 Other specified places as the place of occurrence of the external cause; Z68.27 Body mass index [BMI] 27.0-27.9, adult; Z90.49 Acquired absence of other specified parts of digestive tract; Z90.710 Acquired absence of both cervix and uterus; Z87.891 Personal history of nicotine dependence; Z82.49 Family history of ischemic heart disease and other diseases of the circulatory system; Z91.030 Bee allergy status; Z88.8 Allergy status to other drugs, medicaments and biological substances; Z91.018 Allergy to other foods; Z79.899 Other long term (current) drug therapy; Z79.84 Long term (current) use of oral hypoglycemic drugs; Z79.4 Long term (current) use of insulin; Z79.82 Long term (current) use of aspirin

== ENCOUNTER → 2019-09-15 | Outpatient (CLI) | payer OTHER ==
[~2019-09-15] MED LIST changes: +AMINOPHYLLIN200 MG PO; +BASAG SOL IJ; +GLUCOPHAGE1000 MG PO; +TRINTELLIX20 MG PO
[2019-09-15 10:43] LABS: HEMATOCRIT 33.4 % (37.0-47.0); MEAN CELL VOLUME 81.9 fl (81.0-99.0); MEAN CORPUSCULAR HGB 25.5 pg (27.0-31.0); MEAN CORPUSCULAR HGB CONC 31.1 g/dl (33.0-37.0); MEAN PLATELET VOLUME 11.4 fl (9.6-12.3); RED BLOOD COUNT 4.08 10*6/uL (4.10-5.10); RED CELL DISTRI WIDTH 19.1 % (0-14.5); WHITE BLOOD COUNT 13.1 10*3/uL (4.8-10.8)
[2019-09-15 11:14] LABS: ALBUMIN 2.1 gm/dl (3.1-4.5); BUN 12 mg/dl (7-24); CHLORIDE 99 mmol/L (98-107); CREATININE 0.86 mg/dL (0.55-1.02); HDL CHOLESTEROL 19 mg/dl (40-60); SGOT/AST 273 IU/L (3-35); SGPT/ALT 111 U/L (12-78); SODIUM 134 mmol/L (136-145); TRIGLYCERIDES 154 mg/dl (<150); VLDL CHOLESTEROL 31 mg/dL (6-40)
[2019-09-15 12:05] LABS: ALKALINE PHOSPHATASE 1654 U/L (45-117); CHOLESTEROL 644 mg/dL (<200); LDL CHOLESTEROL 594 mg/dL (9-159)
== END | disposition home or self-care (01) ==
LOC: LAB 10:21
PROVIDERS: Internal Medicine
DX: I10 Essential (primary) hypertension (principal); R79.89 Other specified abnormal findings of blood chemistry; E78.2 Mixed hyperlipidemia; E11.9 Type 2 diabetes mellitus without complications

== ENCOUNTER 2019-11-13 15:34 | Inpatient (IN) | payer OTHER ==
[~2019-11-13] VITALS: Ht 167.6 cm; Wt 73.1 kg
[2019-11-13 15:46] VITALS: BP 125/81
--- NOTE | 2019-11-13 16:22 | NUR ---
PT REFUSED WHEELCHAIR ASSISTANCE TO GO TO RESTROOM AT THIS TIME STATES "I AM FINE" ENCOURAGED USE OF WC D/T FATIGUE
[2019-11-13 17:25] LABS: HEMATOCRIT 30.2 % (37.0-47.0); MEAN CELL VOLUME 80.3 fl (81.0-99.0); MEAN CORPUSCULAR HGB 25.5 pg (27.0-31.0); MEAN CORPUSCULAR HGB CONC 31.8 g/dl (33.0-37.0); MEAN PLATELET VOLUME 10.8 fl (9.6-12.3); PLATELET COUNT AUTOMATED 203 10*3/uL (130-400); RED BLOOD COUNT 3.76 10*6/uL (4.10-5.10); RED CELL DISTRI WIDTH 20.6 % (0-14.5); WHITE BLOOD COUNT 22.6 10*3/uL (4.8-10.8)
[2019-11-13 17:39] LABS: ALBUMIN 1.5 gm/dl (3.1-4.5); CREATININE 2.3 mg/dL (0.55-1.02); POTASSIUM 3.4 mmol/L (3.5-5.1); TOTAL PROTEIN 8.2 gm/dL (6.4-8.2)
[2019-11-13 17:44] LABS: TOTAL CELLS COUNTED 100 #CELLS
[2019-11-13 17:45] LABS: PLATELET SUFFICIENCY NORMAL (NORMAL); ROULEAUX MARKED
[2019-11-13 17:47] LABS: BILIRUBIN 2+; BLOOD 2+ (NEGATIVE); CLARITY CLOUDY (CLEAR); COLOR DARK YELLOW (YELLOW); GLUCOSE TRACE; KETONE NEGATIVE; PH 5.5 (4.5-8.0)
[2019-11-13 17:48] LABS: BACTERIA 2+; LEUKO ESTERASE TRACE (NEGATIVE); NITRITE NEGATIVE (NEGATIVE)
[2019-11-13 18:26] LABS: INTERNATIONAL NORM RATIO 1.2 (2.0-3.5)
[2019-11-13 19:31] VITALS: BP 133/74
--- NOTE | 2019-11-13 19:31 | NUR ---
PT. RESTING IN BED IN NO DISTRESS. WILL CONT TO MONITOR. CALL LIGHT IN REACH.
--- NOTE | 2019-11-13 21:01 | NUR ---
PT. UP AND TO BATHROOM. WILL CONT TO MONITOR. CALL LIGHT IN REACH.
[2019-11-13 21:50] VITALS: BP 96/52
--- NOTE | 2019-11-13 21:50 | NUR ---
A 49, admitted to [facility], under the services of JACK Navarrete DO with a diagnosis of UTI/ARF/HEPATIC ENCEPHALOPATHY. Chief complaint is DIZZINESS. Patient arrived via stretcher from ER. Monitor applied. Initial assessment completed. Vital signs taken and recorded. JACK NAVARRETE DO notified of admission to the unit. Orders received. See assessment for past medical history, medications and allergies. Patient and/or family oriented to unit. visitation policy reviewed. Clothing/patient valuable form completed. TRENT CINTRON
[2019-11-14 00:12] LABS: CREATININE 2.2 mg/dL (0.55-1.02); POTASSIUM 2.6 mmol/L (3.5-5.1)
[2019-11-14 06:57] LABS: HEMATOCRIT 28.5 % (37.0-47.0); MEAN CELL VOLUME 82.1 fl (81.0-99.0); MEAN CORPUSCULAR HGB 24.8 pg (27.0-31.0); MEAN CORPUSCULAR HGB CONC 30.2 g/dl (33.0-37.0); MEAN PLATELET VOLUME 10.9 fl (9.6-12.3); PLATELET COUNT AUTOMATED 165 10*3/uL (130-400); RED BLOOD COUNT 3.47 10*6/uL (4.10-5.10); RED CELL DISTRI WIDTH 20.8 % (0-14.5); WHITE BLOOD COUNT 23.6 10*3/uL (4.8-10.8)
[2019-11-14 07:01] LABS: CREATININE 2.28 mg/dL (0.55-1.02); TOTAL PROTEIN 7.2 gm/dL (6.4-8.2)
[2019-11-14 07:06] LABS: ALBUMIN 1.2 gm/dl (3.1-4.5)
[2019-11-14 07:12] LABS: THYROID STIM HORMONE (HS) 2.67 uIU/ml (0.358-4.75)
[2019-11-14 07:13] LABS: POTASSIUM 3.7 mmol/L (3.5-5.1)
[2019-11-14 07:22] LABS: TOTAL CELLS COUNTED 100 #CELLS; TOXIC GRANULATION SLIGHT
[2019-11-14 07:23] LABS: PLATELET SUFFICIENCY NORMAL (NORMAL); ROULEAUX MODERATE; VACUOLATION OF NEUTROPHILS SLIGHT
[2019-11-14 08:00] VITALS: BP 115/81
--- NOTE | 2019-11-14 09:00 | NUR ---
Analog Ic Design Engineer in to talk to patient. Patient states lives at home with son, mom, brother and brother's . There are none steps in the home. Physician: [facility] Home health services: none Patient's level of ADLs: MINIMAL ASSIST Patient has working utilities: all working DME: cane, wheelchair Follow-up physician's appointment after d/c: will be made by hospitalist nurse director upon discharge Does patient want to access PORTAL?: no Discharge plan discussed with patient, she states she lives home with family, she is independent in adls and sometimes requires some assistance with ambulation, she has a cane and a wheelchair, she states she has had a fall at home, discussed with her a short term prison for 5 days of rehab and 24 hour care prior to returning home, she declined, also discussed with her VNA and educated her on the services they provide, she also declinied this, she stated she would retun home when discharged and didn't need any of the services, case management will follow. PORFIRIO MAKI
--- NOTE | 2019-11-14 09:00 | NUR ---
Director Of Premium Seat Sales in to talk to patient. Patient states lives at home with son. There are no steps in the home. Physician: carmella frederick [facility]: [facility] Home health services: none Patient's level of ADLs: MINIMAL ASSIST Patient has working utilities: all working DME: cane Follow-up physician's appointment after d/c: will be made by hospitalist nurse director upon discharge Does patient want to access PORTAL?: no Discharge plan discussed with patient, she stated she lives at home with her son, she has a cane to use with ambulation, but has had a fall.discussed with her a short term residential with 5 days of rehab and 24 hour care prior to returning home, she declined stated she was returning home, also discussed VNA and educated on the services they provide, she also declined this, case management will follow and set up any home needs. PORFIRIO MAKI
[2019-11-14] MEDS ORDERED: VRAYLAR4.5 MG PO (09:54)
[2019-11-14] MEDS ORDERED: LANTUS SOL100 UNIT/1 SQ (09:56)
--- NOTE | 2019-11-14 10:38 | NUR ---
NOTIFIED & 'S ANSWERING SERVICES OF CONSULTS.
[2019-11-14 12:00] VITALS: BP 115/77
[2019-11-14 16:00] VITALS: BP 119/88
--- NOTE | 2019-11-14 17:49 | NUR ---
NOTIFIED OF + BLOOD CULTURES.
[2019-11-14 20:00] VITALS: BP 97/62
[2019-11-15] VITALS: BP 118/66
--- NOTE | 2019-11-15 02:32 | NUR ---
24 HR chart check completed.
[2019-11-15 07:30] LABS: ALBUMIN 1.3 gm/dl (3.1-4.5); CREATININE 2.07 mg/dL (0.55-1.02); POTASSIUM 3.2 mmol/L (3.5-5.1); TOTAL PROTEIN 7.1 gm/dL (6.4-8.2)
[2019-11-15 07:54] LABS: BASO % 0.2 % (0.0-1.0); HEMATOCRIT 27.8 % (37.0-47.0); LYMPH # 1.1 10*3/uL (1.3-4.4); LYMPH % 9.4 % (27.0-41.0); MEAN CORPUSCULAR HGB 25.1 pg (27.0-31.0); MEAN CORPUSCULAR HGB CONC 30.9 g/dl (33.0-37.0); MONO # 1.3 10*3/uL (0.1-1.0); MONO % 11.1 % (3.0-9.0); NEUT # 8.9 10*3/uL (2.3-7.9); NEUT % 78.7 % (47.0-73.0); PLATELET COUNT AUTOMATED 163 10*3/uL (130-400); RED BLOOD COUNT 3.43 10*6/uL (4.10-5.10); RED CELL DISTRI WIDTH 20.4 % (0-14.5); WHITE BLOOD COUNT 11.3 10*3/uL (4.8-10.8)
--- NOTE | 2019-11-15 08:42 | NUR ---
PT RESTING IN BED/ NO DISTRESS NOTED. WILL MONITOR
--- NOTE | 2019-11-15 09:00 | NUR ---
case management visits with patient, she states she will return home when discharged and denies any home needs, case management will follow
--- NOTE | 2019-11-15 11:44 | NUR ---
DR ROMERO HERE TO SEE PT
[2019-11-15 12:00] VITALS: BP 109/59
--- NOTE | 2019-11-15 15:45 | NUR ---
Discharge instructions reviewed with patient/family. Patient receptive and verbalizes understanding. Follow-up care arranged. Written instructions given to patient/family. SAULO ZUÑIGA
--- NOTE | 2019-11-15 16:02 | NUR ---
REPORT CALLED TO [facility] .
== END 2019-11-15 15:45 | disposition short-term general hospital (02) | DRG 720 ==
LOC: ED 15:34 → EDHOLD 18:54 → 4NE 18:54
PROVIDERS: Internal Medicine; Nurse Practitioner; Nurse Practitioner Family; ADMIT Internal Medicine; ATTEND Internal Medicine
DX: A41.89 Other specified sepsis (principal); N17.0 Acute kidney failure with tubular necrosis; N39.0 Urinary tract infection, site not specified; E43 Unspecified severe protein-calorie malnutrition; F31.9 Bipolar disorder, unspecified; I10 Essential (primary) hypertension; K21.9 Gastro-esophageal reflux disease without esophagitis; J44.9 Chronic obstructive pulmonary disease, unspecified; R31.9 Hematuria, unspecified; R65.20 Severe sepsis without septic shock; E87.1 Hypo-osmolality and hyponatremia; D50.9 Iron deficiency anemia, unspecified; K70.30 Alcoholic cirrhosis of liver without ascites; E87.6 Hypokalemia; E87.8 Other disorders of electrolyte and fluid balance, not elsewhere classified; E80.6 Other disorders of bilirubin metabolism; E72.20 Disorder of urea cycle metabolism, unspecified; E11.65 Type 2 diabetes mellitus with hyperglycemia; E78.5 Hyperlipidemia, unspecified; G89.29 Other chronic pain; E55.9 Vitamin D deficiency, unspecified; K72.90 Hepatic failure, unspecified without coma; K80.50 Calculus of bile duct without cholangitis or cholecystitis without obstruction; B96.20 Unspecified Escherichia coli [E. coli] as the cause of diseases classified elsewhere; Z79.4 Long term (current) use of insulin; Z88.8 Allergy status to other drugs, medicaments and biological substances; Z91.030 Bee allergy status; Z79.51 Long term (current) use of inhaled steroids; Z90.710 Acquired absence of both cervix and uterus; Z90.49 Acquired absence of other specified parts of digestive tract; Z87.891 Personal history of nicotine dependence; Z82.49 Family history of ischemic heart disease and other diseases of the circulatory system; Z79.82 Long term (current) use of aspirin

== ENCOUNTER 2019-11-20 09:42 | Inpatient (IN) | payer OTHER ==
[~2019-11-20] VITALS: Ht 167.6 cm; Wt 73.5 kg
[~2019-11-20 09:42] MED LIST changes: +LANTUS SOL100 UNIT/1 SQ; +VRAYLAR4.5 MG PO
[2019-11-20 09:48] VITALS: BP 157/81
--- NOTE | 2019-11-20 10:37 | NUR ---
UNABLE TO OBTAIN IV ACCESS. DR PEÑA NOTIFIED.
[2019-11-20 10:54] LABS: BASO % 0.2 % (0.0-1.0); HEMATOCRIT 25.5 % (37.0-47.0); LYMPH # 1.1 10*3/uL (1.3-4.4); LYMPH % 10.1 % (27.0-41.0); MEAN CELL VOLUME 82.3 fl (81.0-99.0); MEAN CORPUSCULAR HGB 25.8 pg (27.0-31.0); MEAN CORPUSCULAR HGB CONC 31.4 g/dl (33.0-37.0); MEAN PLATELET VOLUME 11.3 fl (9.6-12.3); MONO # 0.8 10*3/uL (0.1-1.0); MONO % 6.7 % (3.0-9.0); NEUT # 9.3 10*3/uL (2.3-7.9); NEUT % 82.1 % (47.0-73.0); PLATELET COUNT AUTOMATED 222 10*3/uL (130-400); RED CELL DISTRI WIDTH 20.8 % (0-14.5); WHITE BLOOD COUNT 11.3 10*3/uL (4.8-10.8)
[2019-11-20 11:06] LABS: ACT PARTIAL THROMBO TIME 28.5 SECONDS (20.0-32.1); INTERNATIONAL NORM RATIO 1.1 (2.0-3.5)
[2019-11-20 11:11] LABS: ALBUMIN 1.3 gm/dl (3.1-4.5); BUN 10 mg/dl (7-24); CHLORIDE 99 mmol/L (98-107); CREATININE 0.84 mg/dL (0.55-1.02); SGOT/AST 203 IU/L (3-35); SGPT/ALT 55 U/L (12-78); SODIUM 133 mmol/L (136-145); TOTAL PROTEIN 7.2 gm/dL (6.4-8.2)
[2019-11-20 11:23] LABS: ALKALINE PHOSPHATASE 1101 U/L (45-117)
[2019-11-20 13:19] VITALS: BP 144/82
--- NOTE | 2019-11-20 13:23 | NUR ---
MORPHINE NOT GIVEN , UNABLE TO GAIN IV ACCESS, MICHELET GOULD BIOLOGICAL AIDE NOTIFIED. PT MS.
--- NOTE | 2019-11-20 13:39 | NUR ---
IV WAS ESTABILSED BY DR CASEY CLAROS.
[2019-11-20 14:00] VITALS: BP 147/91
--- NOTE | 2019-11-20 15:29 | NUR ---
PT C/O LEFT LEG PAIN, RATES PAIN 10 ON PAIN SCALE 0-10. MEDICATED WITH MORPHINE IV PER PRN ORDER, SEE EMAR. CALL LIGHT IN REACH.
--- NOTE | 2019-11-20 15:40 | NUR ---
CALLED MICHELET AWARE PT MEDICATIONS NEED ORDERED.
[2019-11-20 15:49] LABS: BILIRUBIN 1+; BLOOD Trace-Lysed (Negative); CLARITY Clear (Clear); COLOR Dark Yellow (Yellow); GLUCOSE 3+; KETONE Trace; LEUKO ESTERASE Negative (Negative); NITRITE Negative (Negative); PH 5.5 (4.5-8.0); SPECIFIC GRAVITY 1.015 (1.001-1.030)
[2019-11-20 16:00] VITALS: BP 151/84
[2019-11-20 16:12] LABS: BACTERIA 1+
--- NOTE | 2019-11-20 16:25 | NUR ---
PT RESTING IN BED WITH EYES CLOSED. RESP-EASY AND REGULAR. MEDICATION SEEMS TO BE EFFECTIVE. CALL LIGHT IN REACH.
--- NOTE | 2019-11-20 16:49 | NUR ---
PT BSG-158. SHE STATES SHE ISN'T ABLE TO EAT HER FOOD. NO COVERAGE GIVEN.
[2019-11-20 19:43] LABS: URINE AMPHETAMINES < 1000 (1000ng/ml); URINE BARBITURATES < 200 (200ng/ml); URINE BENZODIAZEPINES < 200 (200ng/ml); URINE CANNABINOIDS (THC) < 50 (50ng/ml); URINE COCAINE < 300 (300ng/ml); URINE METHADONE < 300 (300ng/ml); URINE OPIATES > 300 (300ng/ml)
[2019-11-20 19:48] LABS: URINE PHENCYCLIDINE < 25 (25ng/ml)
--- NOTE | 2019-11-20 19:53 | NUR ---
IV MORPHINE GIVEN FOR C/O L LEG PAIN RATED 10/10. WILL MONITOR EFFECTIVENESS. CALL LIGHT LEFT IN REACH.
[2019-11-20 20:00] VITALS: BP 129/77
[2019-11-21] VITALS: BP 108/67
--- NOTE | 2019-11-21 00:20 | NUR ---
MEDICATED WITH PRN MORPHINE FOR CO LEFT LEG PAIN RATED A 10/10. WILL ASSESS EFFECTIVENESS.
--- NOTE | 2019-11-21 01:20 | NUR ---
PATIENT SLEEPING. RESPS EASY AND REGULAR. MORPHINE APPEARS TO BE EFFECTIVE.
--- NOTE | 2019-11-21 04:29 | NUR ---
MEDICATED WITH PRN MORPHINE FOR CO LEFT HIP PAIN RATED A 10/10. WILL ASSESS EFFECTIVENESS.
--- NOTE | 2019-11-21 05:29 | NUR ---
PER PATIENT THE MORPHINE HELPED.
[2019-11-21 06:28] LABS: BASO % 0.2 % (0.0-1.0); HEMATOCRIT 22.5 % (37.0-47.0); LYMPH # 1.6 10*3/uL (1.3-4.4); LYMPH % 11.9 % (27.0-41.0); MEAN CELL VOLUME 82.1 fl (81.0-99.0); MEAN CORPUSCULAR HGB 25.5 pg (27.0-31.0); MEAN CORPUSCULAR HGB CONC 31.1 g/dl (33.0-37.0); MEAN PLATELET VOLUME 10.9 fl (9.6-12.3); MONO # 1.1 10*3/uL (0.1-1.0); MONO % 8.5 % (3.0-9.0); NEUT # 10.5 10*3/uL (2.3-7.9); NEUT % 78.8 % (47.0-73.0); PLATELET COUNT AUTOMATED 212 10*3/uL (130-400); RED BLOOD COUNT 2.74 10*6/uL (4.10-5.10); RED CELL DISTRI WIDTH 21.2 % (0-14.5); RETICULOCYTE % 3.33 % (0.50-2.50); WHITE BLOOD COUNT 13.3 10*3/uL (4.8-10.8)
[2019-11-21 06:56] LABS: ALBUMIN 1.1 gm/dl (3.1-4.5); BUN 11 mg/dl (7-24); CHLORIDE 103 mmol/L (98-107); CREATININE 0.83 mg/dL (0.55-1.02); HDL CHOLESTEROL 7 mg/dl (40-60); IRON 43 ug/dL (50-170); POTASSIUM 3.6 mmol/L (3.5-5.1); SGOT/AST 207 IU/L (3-35); SGPT/ALT 52 U/L (12-78); SODIUM 135 mmol/L (136-145); TOTAL IRON BINDING CAPACITY 279 ug/dl (250-450); TOTAL PROTEIN 6.4 gm/dL (6.4-8.2); TRIGLYCERIDES 132 mg/dl (<150); VLDL CHOLESTEROL 26 mg/dL (6-40)
[2019-11-21 07:10] LABS: FREE T4 2.08 ng/dl (0.76-1.46)
--- NOTE | 2019-11-21 07:30 | NUR ---
PT RESTING IN BED. RESPS EASY AND NON LABORED. VSS. WHITE BOARD UPDATED. POC DISCUSSED W PT. A/O X3. PT CONTINUES TO COMPLAIN OF LEFT LEG/HIP PAIN. BRUSING NOTED TO LEFT WHITNEY. PT STATES SHE IS UNSURE WHAT IS CAUSING THE PAIN. WILL CONTINUE TO MONITOR. CALL LIGHT WITHIN REACH.
[2019-11-21 07:44] LABS: CHOLESTEROL 753 mg/dL (<200); LDL CHOLESTEROL 720 mg/dL (9-159)
[2019-11-21 07:45] LABS: ALKALINE PHOSPHATASE 996 U/L (45-117)
[2019-11-21 07:53] LABS: FERRITIN 483.1 ng/mL (10.0-291.0); VITAMIN D, 25-HYDROXY 28.3 ng/mL (30-100)
[2019-11-21 08:00] VITALS: BP 118/72
--- NOTE | 2019-11-21 08:00 | NUR ---
PT CALLING OUT REQUESITNG "PAIN SHOT". EXPLAINED TO PT SHE WAS NOT DUE YET FOR MORPHINE PER THE PHYSICIANS ORDER. PT STATES "GIVE IT TO ME NOW OR IM LEAVING". AGAIN, EXPLAINED TO PT SHE COULD HAVE IT AROUND 8:30. MICHELET GOULD AWARE.
--- NOTE | 2019-11-21 08:22 | NUR ---
Nursing screen received and chart reviewed. Patient admitted from home with L hip pain s/p a fall at home. If patient has a decline in ADLs, transfers, and functional mobility, please send OT orders. Thank you. Katie Calloway, OTR/L
--- NOTE | 2019-11-21 08:29 | NUR ---
PT C/O / ACHING/STABBING LEFT LEG/HIP PAIN. MEDICATED PER ORDER. WILL CONTINUE TO MONITOR FOR RELIEF. RESPS EASY AND NON LABORED. SITTING UP IN BED WATCHING TV. CALL LIGHT WITHIN REACH.
--- NOTE | 2019-11-21 08:42 | NUR ---
PT TAKEN OFF FLOOR FOR MRI
[2019-11-21 08:48] LABS: HEMATOCRIT 23.2 % (37.0-47.0)
--- NOTE | 2019-11-21 09:04 | NUR ---
PT UNABLE TO TOLERATE MRI. MICHELET ON THE FLOOR TO TALK TO PT.
--- NOTE | 2019-11-21 09:20 | NUR ---
MORPHINE APPEARS EFFECTIVE. PT CURRENTLY SLEEPING IN BED. RESPS EASY AND NON LABORED. NO S/S OF DISTRESS NOTED. CALL LIGHT WITHIN REACH.
--- NOTE | 2019-11-21 11:39 | NUR ---
Gasoline Finisher in to talk to patient. Patient states lives at HOME with SON. There are 16 steps in the home. Physician: ANGY [facility]acy: [facility] Home health services: NONE Patient's level of ADLs: INDEPENDENT Patient has working utilities: YES DME: [facility]INA Follow-up physician's appointment after d/c: WILL BE MADE BY HOSPITALIST NURSE DIRECTOR ON DISCHARGE Does patient want to access PORTAL?: NO Discharge plan PT LIVES AT HOME WITH HER SON AND IS INDEPENDENT IN HER CARE, PT STATES HER PLAN IS TO RETURN HOME WHEN MEDICALLY STABLE. PT HAD JUST RETURNED TO ROOM FROM MRI. PT REFUSED TO HAVE MRI DONE, STATES SHE CAN NOT KEEP HER LEG STRAIGHT DUE TO SEVERE PAIN AND THEY TOLD HER SHE HAD TOO FOR MRI.. MICHELET GOULD IN ROOM AND TALKED WITH PT AND IMPORTANCE OF MRI BUT PT STATES SHE CAN'T DO IT. STATES SHE WILL HAVE A RIDE HOME ON DISCHARGE. WILL CONTINUE TO FOLLOW. FREDDIE VALVERDE
[2019-11-21 12:00] VITALS: BP 118/72; BP 148/86
--- NOTE | 2019-11-21 12:21 | NUR ---
INTO OBTAIN CONSENT FOR BLOOD. PT STATES UNDER NO CIRCUMSTANCES SHE DOES NOT WANT A BLOOD TRANSFUSION. WHEN QUESTIONED PT SHE STATED "I JUST DONT WANT IT AND I WANT MY PAIN SHOT". WILL INFORM PRIMARY TEAM.
--- NOTE | 2019-11-21 12:59 | NUR ---
PHYSICAL THERAPY Nursing screen received and chart reviewed. PT order received. Will follow to complete PT evaluation. Thank you. Azucena Soler,PT, DPT
--- NOTE | 2019-11-21 13:45 | NUR ---
OT NOTE Occupational therapy order received, chart reviewed, and attempted to see patient at bedside. Patient declined an OT evaluation at this time stating "I can't walk or get up..I have 11/10 pain." Patient educated on benefits of OT and declined further. Per patient, she has been not been ambulating in the room and is using the bedpan. Will check back at a later date for completion of an OT eval. Thank you. Katie Calloway, OTR/L
--- NOTE | 2019-11-21 14:00 | NUR ---
PT AGREEABLE TO APPLY CIARAN HOSE TO RIGHT LEG WELL BILATERAL SCD'S. STATES SHE WILL NOT PUT ON CIARAN HOSE TO LEFT LEG D/T PAIN. RATIONALE EXPLAINED TO PT. ALSO OUTLINED BRUISES PER MICHELET RUELAS REQUEST.
--- NOTE | 2019-11-21 14:08 | NUR ---
PT C/O 12/01 ACHING LEFT LEG/HIP PAIN.MEDICATED PER ORDER. WILL MONITOR FOR RELIEF. RESPS EASY AND NON LABORED. SITTING IN BED ON CELL PHONE. BED ALARM ON. CALL LIGHT WITHIN REACH.,
--- NOTE | 2019-11-21 14:45 | NUR ---
PT STATES MEDICATION MOSTLY EFFECTIVE.
--- NOTE | 2019-11-21 14:58 | NUR ---
PHYSICAL THERAPY Physical therapy evaluation attempted. Patient refusing skilled PT services at this time due to pain rating of "11 at left hip." Patient reports she is unable to stand and she is using a bedpan. Plan to attempt evaluation again at a later date, per patient request. Thank you. Azucena Soler,PT,DPT
--- NOTE | 2019-11-21 15:01 | NUR ---
PT REFUSED PT/OT
[2019-11-21 16:00] VITALS: BP 128/76
[2019-11-21 20:00] VITALS: BP 117/62
--- NOTE | 2019-11-21 21:34 | NUR ---
PATIENTS BLOOD SUGAR 56 UPON CHECKING IT AT THIS TIME. PATIENT STATES SHE FEELS FINE AND DID NOT EAT MUCH TODAY. PROVIDED ORANGE JUICE AND A POPSICLE AND WILL RECHECK.
--- NOTE | 2019-11-21 22:13 | NUR ---
BSG 118 ON RECHECK AFTER ORANGE JUICE AND POPSICLES.
--- NOTE | 2019-11-21 23:48 | NUR ---
24 HR chart check completed.
[2019-11-22] VITALS (12 sets, daily range): BP systolic 99–157; BP diastolic 55–80
--- NOTE | 2019-11-22 00:45 | NUR ---
RESTING IN BED. RESPS EASY AND REGULAR. VOICES NO CONCERNS. CALL LIGHT IN REACH.
[2019-11-22 06:38] LABS: MEAN CELL VOLUME 83.3 fl (81.0-99.0); MEAN CORPUSCULAR HGB 25.8 pg (27.0-31.0); MEAN CORPUSCULAR HGB CONC 30.9 g/dl (33.0-37.0); MEAN PLATELET VOLUME 10.5 fl (9.6-12.3); PLATELET COUNT AUTOMATED 198 10*3/uL (130-400); RED BLOOD COUNT 2.64 10*6/uL (4.10-5.10); WHITE BLOOD COUNT 19.7 10*3/uL (4.8-10.8)
--- NOTE | 2019-11-22 06:48 | NUR ---
NOTIFIED OF CRITICAL HGB OF 6.8 AND PATIENT STILL NOT WANTING BLOOD.
[2019-11-22 06:53] LABS: ALBUMIN 1.1 gm/dl (3.1-4.5); BUN 13 mg/dl (7-24); CHLORIDE 102 mmol/L (98-107); POTASSIUM 3.3 mmol/L (3.5-5.1); SGOT/AST 231 IU/L (3-35); SGPT/ALT 53 U/L (12-78); SODIUM 136 mmol/L (136-145); TOTAL PROTEIN 6.4 gm/dL (6.4-8.2)
--- NOTE | 2019-11-22 06:55 | NUR ---
BSG 67, ORANGE JUICE PROVIDED.
[2019-11-22 07:07] LABS: ALKALINE PHOSPHATASE 1008 U/L (45-117)
[2019-11-22 07:17] LABS: ROULEAUX MODERATE; TARGET CELLS FEW; TOTAL CELLS COUNTED 100 #CELLS
[2019-11-22 07:18] LABS: PLATELET SUFFICIENCY NORMAL (NORMAL); POLYCHROMASIA SLIGHT
--- NOTE | 2019-11-22 07:56 | NUR ---
PHYSICAL THERAPY Physical Therapy evaluation completed on 5E with full evaluation to follow. Moderate complexity skilled PT evaluation per chart review and evaluation, [id number]. Recommend physical therapy per plan of care and Home Health upon discharge. Thank you for this referral. Azucena Soler,PT,DPT
--- NOTE | 2019-11-22 07:56 | NUR ---
Occupational Therapy evaluation completed on 5 with full eval to follow. Patient in bed and needed encouragement to participate in evaluation. Precautions include fall risk,left hip/thigh pain, IV UE, moderate complexity level [id number]. Recommend OT per POC and SNF to enable safe return home. Patient refuses SNF and insists upon return home w/ son with 16 steps to enter 2nd floor where patient lives/stays and was using a cane prior to admission. Patient is unable to ambulate w/ walker at this time. Thank you for this referral. Patient left in bed, bed alarm, call light and phone in reach. Halley Kerr OTR/l
--- NOTE | 2019-11-22 07:59 | NUR ---
MEDICATED WITH PRN IV MORPHINE FOR C/O LEFT HIP AND LEG PAIN.
--- NOTE | 2019-11-22 08:15 | NUR ---
PATIENT RESTING QUIETLY; PRN PO PHENOBARBITAL EFFECTIVE.
--- NOTE | 2019-11-22 08:24 | NUR ---
PRN IV MORPHINE SOMEWHAT EFFECTIVE, PER PATIENT. LEFT LEG PAIN AGGRAVATED BY PHYSICAL THERAPY EXERCISES.
--- NOTE | 2019-11-22 08:46 | NUR ---
ENMA GOULD IN TO SEE PATIENT AND DISCUSS BLOOD TRANSFUSION. PATIENT IS NOW AGREEABLE TO GETTING A UNIT OF BLOOD FOR LOW HGB, OBTAINED A SECOND CONSENT AND PLACED ON CHART DUE, SHE HAD REFUSED EARLIER AFTER THE FIRST CONSENT WAS SIGNED.
--- NOTE | 2019-11-22 09:38 | NUR ---
UNIT 1 OF 1 PRBC'S INITIATED. DISCUSSED SIGNS/SYMPTOMS OF A REACTION, ENCOURAGED TO REPORT ANY OF THESE IMMEDIATELY, PATIENT VERVALIZES UNDERSTANDING.
--- NOTE | 2019-11-22 11:38 | NUR ---
HAND TREMORS AND TACHYCARDIA NOTED-HRR 108 BPM.
--- NOTE | 2019-11-22 11:39 | NUR ---
PT CONTINUES TO SAY SHE WANTS TO GO HOME ON DISCHARGE. PT IS RECEIVING A UNIT OF BLOOD TODAY FOR LOW HGB. WILL CONTINUE TO FOLLOW. STATES SHE WILL HAVE A RIDE HOME.
--- NOTE | 2019-11-22 11:55 | NUR ---
MEDICATED WITH PRN IV MORPHINE FOR C/O LEFT LEG PAIN.
[2019-11-22 12:15] LABS: BILIRUBIN 2+ (Negative); BLOOD Trace-Lysed (Negative); CLARITY Cloudy (Clear); COLOR Dark Yellow (Yellow); GLUCOSE 1+ (Negative); KETONE Negative (Negative); LEUKO ESTERASE 1+ (Negative); NITRITE Positive (Negative); PH 5.5 (4.5-8.0)
[2019-11-22 12:47] LABS: BACTERIA 2+; EPITHELIAL CELLS 41-50
[2019-11-22 12:48] LABS: YEAST 1+
--- NOTE | 2019-11-22 12:50 | NUR ---
PRN IV MORPHINE EFFECTIVE, PER PATIENT.
--- NOTE | 2019-11-22 13:51 | NUR ---
ENMA GOULD NOTIFIED OF TEMP. 102.9 TEMPORAL. SHE IS ENTERING ORDER FOR TYLENOL.
[2019-11-22 13:59] LABS: HEMATOCRIT 28.1 % (37.0-47.0)
--- NOTE | 2019-11-22 14:02 | NUR ---
ADMINISTERED PO TYLENOL 625MG X 1 ORDERED FOR TEMP. 102.9 TEMPORAL.
--- NOTE | 2019-11-22 17:08 | NUR ---
OBTAINED BEDSIDE GLUCOSE RESULT OF 51. PATIENT HAVING NO S/S HYPOGLYCEMIA, SKIN IS HOT TO TOUCH AND DRY. PROVIDED 4 OZ. ORANGE JUICE AND A POPSICLE. PATIENT STATES SHE IS NOT VERY HUNGRY AND HAS NOT ORDERED A MEAL YET. ENCOURAGED TO ORDER SUPPER AND OBTAINING PRN D50 1 AMP TO ADMINISTER.
--- NOTE | 2019-11-22 17:13 | NUR ---
ADMINISTERED AMP D50 25GM IV AT THIS TIME FOR BEDSIDE GLUCOSE RESULT 51.
--- NOTE | 2019-11-22 17:13 | NUR ---
MEDICATED WITH PRN PO NORCO FOR LET LEG PAIN.
--- NOTE | 2019-11-22 18:00 | NUR ---
PRN PO NORCO EFFECTIVE, PER PATIENT.
--- NOTE | 2019-11-22 18:53 | NUR ---
REPEAT BEDSIDE GLUCOSE 89. PATIENT STATES SHE DID EAT SUPPER ALREADY. PROVIDED POPSICLE.
--- NOTE | 2019-11-22 19:15 | NUR ---
PATIENT RESTING IN BED. STILL CO LEFT HIP PAIN D/T FALL. VOICES NO OTHER CONCERNS. VSS. ASSESSMENT COMPLETE. RESPS EASY AND REGULAR. CALL LIGHT IN REACH.
[2019-11-23] VITALS: BP 125/73
--- NOTE | 2019-11-23 02:11 | NUR ---
24 HR chart check completed.
--- NOTE | 2019-11-23 04:27 | NUR ---
PATIENTS BSG 46, PATIENT STATES SHE FEELS FINE. POPSICLE PROVIDED. PATIENT STATES SHE DOES NOT WANT ANY JUICE OR ANYTHING ELSE. WILL ADMINISTER 50% DEXTROSE.
--- NOTE | 2019-11-23 04:32 | NUR ---
MEDICATED WITH PRN NORCO FOR CO LEFT HIP PAIN. WILL ASSESS EFFECTIVENESS. CALL LIGHT IN REACH.
--- NOTE | 2019-11-23 04:32 | NUR ---
DEXTROSE 50% GIVEN AT THIS TIME FOR BSG OF 46. PATIENT ASYMPTOMATIC.
--- NOTE | 2019-11-23 05:32 | NUR ---
ARNOLDO HELPED SOME PER PATIENT.
[2019-11-23 06:22] LABS: BASO # 0.1 10*3/uL (0.0-0.1); BASO % 0.3 % (0.0-1.0); LYMPH # 1.4 10*3/uL (1.3-4.4); LYMPH % 8.3 % (27.0-41.0); MEAN CELL VOLUME 84.8 fl (81.0-99.0); MEAN CORPUSCULAR HGB 26.5 pg (27.0-31.0); MEAN CORPUSCULAR HGB CONC 31.3 g/dl (33.0-37.0); MEAN PLATELET VOLUME 10.6 fl (9.6-12.3); MONO # 0.9 10*3/uL (0.1-1.0); MONO % 5.2 % (3.0-9.0); NEUT # 14.5 10*3/uL (2.3-7.9); NEUT % 85.5 % (47.0-73.0); PLATELET COUNT AUTOMATED 169 10*3/uL (130-400); RED BLOOD COUNT 2.83 10*6/uL (4.10-5.10); RED CELL DISTRI WIDTH 21.7 % (0-14.5); WHITE BLOOD COUNT 16.9 10*3/uL (4.8-10.8)
[2019-11-23 06:52] LABS: ALBUMIN 1.1 gm/dl (3.1-4.5); BUN 14 mg/dl (7-24); CHLORIDE 101 mmol/L (98-107); CREATININE 0.79 mg/dL (0.55-1.02); POTASSIUM 3.3 mmol/L (3.5-5.1); SGOT/AST 249 IU/L (3-35); SGPT/ALT 58 U/L (12-78); SODIUM 135 mmol/L (136-145); TOTAL PROTEIN 6.2 gm/dL (6.4-8.2)
[2019-11-23 07:04] LABS: ALKALINE PHOSPHATASE 977 U/L (45-117)
--- NOTE | 2019-11-23 07:30 | NUR ---
TOOK OVER CARE OF PT AT THIS TIME. PT RESTING IN BED. NO S/S OF DISTRESS. RESPIRATIONS EASY AND UNLABORED. NO S/S OF DISTRESS. CALL LIGHT IN REACH.
[2019-11-23 08:00] VITALS: BP 135/83
--- NOTE | 2019-11-23 10:07 | NUR ---
OT NOTE Upon arrival pt was laying supine in bed with head elevated agreeable to 23 minute OT session. Identified by name and date of with complaints of 10/10 left hip pain. Transfer supine to EOB SBA. While at EOB pt donned hospital pants at [facility] with w/w for UB support. Sit-stand SBA with w/w. Functional mobility from EOB to bathroom, and back to bed CGA with w/w. Transferring on and off commode CGA with w/w and grab bar. While back at EOB pt completed BUE exercises with towel at minimal resistance in all planes X10. Pt able doff hospital pants at [facility]. Pt able to posistion self in bed at [facility]. Call light in reach with bed alarm active. Continue POC when able. CHRISTY Jaime/MARIE Herron/Tristan
--- NOTE | 2019-11-23 10:43 | NUR ---
NORCO GIVEN TO PT AT THIS TIME FOR C/O BACK PAIN. WILL MONITOR FOR EFFECTIVENESS. CALL LIGHT IN REACH.
--- NOTE | 2019-11-23 10:47 | NUR ---
CRITICAL LAB VALUE CALLED TO THIS NURSE OF POSITIVE BLOOD CULTURES, GROWING PREVONTELLA BUCCAE. DR. YOO NOTIFIED OF THESE FINDINGS.
--- NOTE | 2019-11-23 11:14 | NUR ---
TALKED WITH PT ABOUT HOME HEALTH AND SHE IS NOW AGREEABLE. GIVEN LIST AND SHE WANT OV. WILL SENT REFERRAL.
--- NOTE | 2019-11-23 11:41 | NUR ---
HOME HEALTH REFERRAL AND FACE TO FACE FORM FAXED TO [facility].
--- NOTE | 2019-11-23 11:43 | NUR ---
ARNOLDO EFFECTIVE PER PT.
--- NOTE | 2019-11-23 11:45 | NUR ---
DR BARLOW OFFICE NOTIFIED OF ID CONSULT FOR THIS PATIENT.
[2019-11-23 12:00] VITALS: BP 115/69
--- NOTE | 2019-11-23 15:05 | NUR ---
PHYSICAL THERAPY TREATMENT TIME: IN 09:55 AM - OUT 10:10 AM 15 MINUTES PRESENTATION: Patient in supine in bed with head of bed elevated No spO2 No IVs Bed alarm on Identified by name and on wristband Informed consent given by patient Patient appears to have a negative attitude towards men MARIE Jose AND CHAVEZ WILSON present as witness to this treatment. COMPLAINTS: L HIP PAIN No pain number given by patient WT. BEARING STATUS: WBAT L LE ASSISTIVE DEVICE: Wh Walker TRANSFERS: Supine <> sit on EOB: Close Supervision STS <> EOB: SBA STS <> commode: SBA TREATMENT: Gait with Wh Walker and CGA - Close Supervision for 24' x 2 Verbal cues for staying close to Walker RESPONSE TO TREATMENT: Patient was left in supine in bed with head of bed elevated Call light within reach Brake bed on Bed alarm on MARIE KHALIL and Chavez Wilson were presnt as witness to this treatment. BIBI SIU BAT BOY/GIRL
--- NOTE | 2019-11-23 15:56 | NUR ---
PT GIVEN NORCO AT THIS TIME FOR C/O PAIN TO LEFT LEG AND HIP. WILL MONITOR FOR EFFECTIVENESS. CALL LIGHT IN REACH.
[2019-11-23 16:00] VITALS: BP 154/90
--- NOTE | 2019-11-23 16:56 | NUR ---
ARNOLDO EFFECTIVE PER PT.
[2019-11-23 20:00] VITALS: BP 96/49
--- NOTE | 2019-11-23 20:00 | NUR ---
Patient still rates her pain in her left leg as 10/10. Made patient aware it is not time for pain meds. Patient states she is unable to move her leg, but was able to get up with pa assistance. Patient left with call light in reach.
--- NOTE | 2019-11-23 21:27 | NUR ---
Patient given norco for her pain of 10/10 in her left leg. Will monitor and reassess.
--- NOTE | 2019-11-23 23:24 | NUR ---
Patient resting, with no signs of distress. [place] effective at this time.
[2019-11-24] VITALS: BP 116/65
--- NOTE | 2019-11-24 03:36 | NUR ---
24 HR chart check completed.
--- NOTE | 2019-11-24 05:07 | NUR ---
Entered patients room to check blood glucose, asked about pain and patient states she is comfortable right now. Re-entered to given morning meds, and patient stated "you know, I am have pain in my lt hip". Amado was given, will monitor and reassess.
[2019-11-24 06:28] LABS: HEMATOCRIT 24.4 % (37.0-47.0); MEAN CELL VOLUME 84.1 fl (81.0-99.0); MEAN CORPUSCULAR HGB 26.6 pg (27.0-31.0); MEAN CORPUSCULAR HGB CONC 31.6 g/dl (33.0-37.0); MEAN PLATELET VOLUME 10.8 fl (9.6-12.3); PLATELET COUNT AUTOMATED 162 10*3/uL (130-400); RED CELL DISTRI WIDTH 21.8 % (0-14.5); WHITE BLOOD COUNT 26.1 10*3/uL (4.8-10.8)
[2019-11-24 06:58] LABS: ALBUMIN 1.1 gm/dl (3.1-4.5); BUN 16 mg/dl (7-24); CHLORIDE 100 mmol/L (98-107); CREATININE 0.91 mg/dL (0.55-1.02); POTASSIUM 3.7 mmol/L (3.5-5.1); SGOT/AST 276 IU/L (3-35); SGPT/ALT 62 U/L (12-78); SODIUM 133 mmol/L (136-145); TOTAL PROTEIN 6.5 gm/dL (6.4-8.2)
[2019-11-24 07:09] LABS: ALKALINE PHOSPHATASE 1043 U/L (45-117)
--- NOTE | 2019-11-24 07:30 | NUR ---
TOOK OVER CARE OF PT AT THIS TIME. PT RESTING IN BED. NO S/S OF DISTRESS. RESPRIATIONS UNLABORED ON ROOM AIR. CALL LIGHT IN REACH.
[2019-11-24 07:41] LABS: PLATELET SUFFICIENCY NORMAL (NORMAL); SCHISTOCYTES FEW; TARGET CELLS MODERATE; TOTAL CELLS COUNTED 100 #CELLS
[2019-11-24 07:42] LABS: ROULEAUX SLIGHT
[2019-11-24 08:00] VITALS: BP 118/94
--- NOTE | 2019-11-24 09:12 | NUR ---
PT UP WALKING WITH WALKER TO BATHROOM AT THIS TIME.
[2019-11-24] MEDS ORDERED: AUGMENTIN 875875 MG PO (11:10)
--- NOTE | 2019-11-24 11:10 | NUR ---
PHYSICAL THERAPY Patient seen this am 1;1 for therapy visit and was standing at EOB with OT assistant professor of biochemistry present upon therapist arrival. Patient identified by name / and reports 7/10 L LE pain. Patient ambulates with use of wh walker, 25'x 2 to bathroom, CGA, wh walker, demonstrating slow, cautious, "step to" gait pattern. Patient also demonstrated Fair+ safey awareness, even in tight bathroom spaces, then returned to EOB sit. Patient reported no change in pain c/o and remained EOB following treatment with call light, telephone. Will continue per POC as tolerated, total treatment time 14 mintes. Fernando Nash, PELLETIZER TENDER
--- NOTE | 2019-11-24 11:23 | NUR ---
OT NOTE Upon arrival pt was sitting EOB agreeable to 15 minute OT session. Identified by name and date of with complaints of 7/10 LLE pain. Pt donned hospital pants with SBA. Sit-stand SBA with w/w for UB support and safety. Functional mobility from EOB to bathroom, and back EOB SBA with w/w. While at EOB pt completed BUE exercises with towel in all planes at moderate resistance X10. Throughout session pts sitting/standing balance were both good+. Pt left at EOB with call light in reach. Continue with POC when able. CHRISTY Jaime/MARIE Herron/Tristan
--- NOTE | 2019-11-24 11:38 | NUR ---
PT CONTINUES TO STATE SHE WILL RETURN HOME WHEN MEDICALLY STABLE. DOES WANT [facility] AND REFERRAL HAS BEEN SENT.
[2019-11-24 12:00] VITALS: BP 122/80
--- NOTE | 2019-11-24 14:18 | NUR ---
Discharge instructions reviewed with patient/family. Patient receptive and verbalizes understanding. Follow-up care arranged. Written instructions given to patient/family. KATHY WEEKS
--- NOTE | 2019-11-24 14:35 | NUR ---
PT LEAVES FLOOR VIA W/C TO SONS CAR IN PARKING LOT.
--- NOTE | 2019-11-24 14:42 | NUR ---
PHYSICAL THERAPY CO-SIGN I approve of the Physical Therapy notes written above. Cinthia Carreon PT
== END 2019-11-24 14:35 | disposition home health service (06) | DRG 720 ==
LOC: ED 09:42 → 5E 12:59 → EDHOLD 12:59 → 5E 13:13
PROVIDERS: Emergency Medicine; Registered Nurse; Student in an Organized Health Care Education/Training Program; ADMIT Family Medicine; ATTEND Family Medicine
PROC: 30233N1 Transfusion of Nonautologous Red Blood Cells into Peripheral Vein, Percutaneous Approach (ICD-10-PCS; principal; 2019-11-22)
DX: A41.9 Sepsis, unspecified organism (principal); M25.552 Pain in left hip; R26.2 Difficulty in walking, not elsewhere classified; E11.65 Type 2 diabetes mellitus with hyperglycemia; I11.0 Hypertensive heart disease with heart failure; I50.32 Chronic diastolic (congestive) heart failure; E83.42 Hypomagnesemia; E87.6 Hypokalemia; K70.30 Alcoholic cirrhosis of liver without ascites; K21.9 Gastro-esophageal reflux disease without esophagitis; G89.29 Other chronic pain; J44.9 Chronic obstructive pulmonary disease, unspecified; E78.5 Hyperlipidemia, unspecified; E66.9 Obesity, unspecified; D62 Acute posthemorrhagic anemia; J45.909 Unspecified asthma, uncomplicated; F31.9 Bipolar disorder, unspecified; N30.00 Acute cystitis without hematuria; E43 Unspecified severe protein-calorie malnutrition; D50.9 Iron deficiency anemia, unspecified; S30.1XXA Contusion of abdominal wall, initial encounter; W18.30XA Fall on same level, unspecified, initial encounter; S39.93XA Unspecified injury of pelvis, initial encounter; Z79.4 Long term (current) use of insulin; Z91.030 Bee allergy status; Z91.018 Allergy to other foods; Z91.09 Other allergy status, other than to drugs and biological substances; Z88.8 Allergy status to other drugs, medicaments and biological substances; Z87.440 Personal history of urinary (tract) infections; Z90.49 Acquired absence of other specified parts of digestive tract; Z90.710 Acquired absence of both cervix and uterus; Z87.891 Personal history of nicotine dependence; Z82.49 Family history of ischemic heart disease and other diseases of the circulatory system; Z84.89 Family history of other specified conditions; Z82.3 Family history of stroke; Z79.82 Long term (current) use of aspirin; Z79.899 Other long term (current) drug therapy; Y93.89 Activity, other specified; Y92.89 Other specified places as the place of occurrence of the external cause; Y99.8 Other external cause status; Z68.26 Body mass index [BMI] 26.0-26.9, adult

== ENCOUNTER 2019-12-05 07:31 | Observation (INO) | payer OTHER ==
[~2019-12-05] VITALS: Ht 167.6 cm; Wt 69.6 kg
[2019-12-05 07:39] VITALS: BP 131/82
[2019-12-05 08:22] LABS: BASO % 0.2 % (0.0-1.0); LYMPH # 0.8 10*3/uL (1.3-4.4); LYMPH % 9.7 % (27.0-41.0); MEAN CELL VOLUME 83.3 fl (81.0-99.0); MEAN CORPUSCULAR HGB CONC 31.2 g/dl (33.0-37.0); MEAN PLATELET VOLUME 10.3 fl (9.6-12.3); MONO # 0.8 10*3/uL (0.1-1.0); MONO % 9.5 % (3.0-9.0); NEUT # 6.9 10*3/uL (2.3-7.9); NEUT % 80.2 % (47.0-73.0); PLATELET COUNT AUTOMATED 190 10*3/uL (130-400); WHITE BLOOD COUNT 8.6 10*3/uL (4.8-10.8)
[2019-12-05 08:33] LABS: ACT PARTIAL THROMBO TIME 30.9 SECONDS (20.0-32.1); INTERNATIONAL NORM RATIO 1.1 (2.0-3.5)
[2019-12-05 08:39] LABS: ALBUMIN 1.2 gm/dl (3.1-4.5); BUN 7 mg/dl (7-24); CHLORIDE 95 mmol/L (98-107); CREATININE 0.75 mg/dL (0.55-1.02); SGOT/AST 148 IU/L (3-35); SGPT/ALT 43 U/L (12-78); SODIUM 135 mmol/L (136-145); TOTAL PROTEIN 7.5 gm/dL (6.4-8.2)
[2019-12-05 08:52] LABS: ALKALINE PHOSPHATASE 1023 U/L (45-117); POTASSIUM 2.1 mmol/L (3.5-5.1); TROPONIN I < 0.015 ng/ml (<0.045)
[2019-12-05 08:59] VITALS: BP 139/86
[2019-12-05 10:39] VITALS: BP 159/94
[2019-12-05 12:00] VITALS: BP 133/85
[2019-12-05 16:00] VITALS: BP 129/82
[2019-12-05 18:49] LABS: POTASSIUM 2.5 mmol/L (3.5-5.1)
[2019-12-05 20:00] VITALS: BP 121/70
[2019-12-06] VITALS: BP 121/75
[2019-12-06 06:26] LABS: ALBUMIN 1.1 gm/dl (3.1-4.5); ALKALINE PHOSPHATASE 978 U/L (45-117); BUN 11 mg/dl (7-24); CHLORIDE 99 mmol/L (98-107); CREATININE 0.63 mg/dL (0.55-1.02); POTASSIUM 2.6 mmol/L (3.5-5.1); SGOT/AST 130 IU/L (3-35); SGPT/ALT 37 U/L (12-78); SODIUM 139 mmol/L (136-145); TOTAL PROTEIN 7.2 gm/dL (6.4-8.2)
[2019-12-06 06:47] LABS: BASO # 0.1 10*3/uL (0.0-0.1); BASO % 0.6 % (0.0-1.0); HEMATOCRIT 23.1 % (37.0-47.0); LYMPH # 1.9 10*3/uL (1.3-4.4); LYMPH % 23.2 % (27.0-41.0); MEAN CELL VOLUME 84.3 fl (81.0-99.0); MEAN CORPUSCULAR HGB 25.9 pg (27.0-31.0); MEAN CORPUSCULAR HGB CONC 30.7 g/dl (33.0-37.0); MEAN PLATELET VOLUME 10.6 fl (9.6-12.3); MONO # 0.9 10*3/uL (0.1-1.0); MONO % 10.3 % (3.0-9.0); NEUT # 5.5 10*3/uL (2.3-7.9); NEUT % 65.5 % (47.0-73.0); PLATELET COUNT AUTOMATED 215 10*3/uL (130-400); RED BLOOD COUNT 2.74 10*6/uL (4.10-5.10); RED CELL DISTRI WIDTH 21.8 % (0-14.5); WHITE BLOOD COUNT 8.4 10*3/uL (4.8-10.8)
[2019-12-06 08:00] VITALS: BP 134/81
[2019-12-06 12:00] VITALS: BP 124/56
[2019-12-06 12:42] LABS: HEMATOCRIT 26.8 % (37.0-47.0)
[2019-12-06] MEDS ORDERED: OXYCODONE HCL5 MG PO ×2 (13:27→13:30)
[2019-12-06] MEDS ORDERED: K-TAB20 MEQ PO (13:34)
== END 2019-12-06 15:18 | disposition home health service (06) ==
LOC: ED 07:31 → EDHOLD 09:07 → 4E 09:07 → EDHOLD 09:07 → 4E 09:21
PROVIDERS: Emergency Medicine; Registered Nurse; ADMIT Internal Medicine; ATTEND Internal Medicine
DX: R07.89 Other chest pain (principal); E87.6 Hypokalemia; E83.42 Hypomagnesemia; D64.9 Anemia, unspecified; K76.9 Liver disease, unspecified; M25.552 Pain in left hip; I10 Essential (primary) hypertension; E11.9 Type 2 diabetes mellitus without complications; K21.9 Gastro-esophageal reflux disease without esophagitis; F31.9 Bipolar disorder, unspecified; E43 Unspecified severe protein-calorie malnutrition; E55.9 Vitamin D deficiency, unspecified; F32.9 Major depressive disorder, single episode, unspecified

== ENCOUNTER 2020-01-01 13:49 | Emergency (ER) | payer OTHER ==
[~2020-01-01 13:49] MED LIST changes: +K-TAB20 MEQ PO; +OXYCODONE HCL5 MG PO
[2020-01-01] MEDS ORDERED: IBU800 MG PO (16:21)
== END 2020-01-01 16:28 | disposition home or self-care (01) ==
LOC: ED 13:49
DX: S70.01XA Contusion of right hip, initial encounter (principal); Z91.030 Bee allergy status; Z91.018 Allergy to other foods; Z88.8 Allergy status to other drugs, medicaments and biological substances; Z79.899 Other long term (current) drug therapy; Z79.82 Long term (current) use of aspirin; Z87.891 Personal history of nicotine dependence; W18.39XA Other fall on same level, initial encounter; Y93.89 Activity, other specified; Y92.89 Other specified places as the place of occurrence of the external cause; Y99.8 Other external cause status

== ENCOUNTER 2020-04-05 15:32 | Emergency (ER) | payer OTHER ==
[~2020-04-05] VITALS: Ht 167.6 cm; Wt 68.0 kg
[~2020-04-05 15:32] MED LIST changes: +IBU800 MG PO
== END 2020-04-05 18:28 | disposition home or self-care (01) ==
LOC: ED 15:32
DX: S69.91XA Unspecified injury of right wrist, hand and finger(s), initial encounter (principal); F31.9 Bipolar disorder, unspecified; J44.9 Chronic obstructive pulmonary disease, unspecified; I11.0 Hypertensive heart disease with heart failure; I50.30 Unspecified diastolic (congestive) heart failure; K21.9 Gastro-esophageal reflux disease without esophagitis; E11.9 Type 2 diabetes mellitus without complications; Z91.030 Bee allergy status; Z88.8 Allergy status to other drugs, medicaments and biological substances; Z91.018 Allergy to other foods; Z79.899 Other long term (current) drug therapy; Z79.4 Long term (current) use of insulin; Z79.82 Long term (current) use of aspirin; Z90.49 Acquired absence of other specified parts of digestive tract; Z98.890 Other specified postprocedural states; Z90.710 Acquired absence of both cervix and uterus; W01.0XXA Fall on same level from slipping, tripping and stumbling without subsequent striking against object, initial encounter; Y93.89 Activity, other specified; Y92.89 Other specified places as the place of occurrence of the external cause; Y99.8 Other external cause status

== ENCOUNTER → 2020-04-18 | Outpatient (CLI) | payer OTHER | END | disposition home or self-care (01) | LOC: MAMMO 09:53 | PROVIDERS: ATTEND Internal Medicine | DX: Z12.31 Encounter for screening mammogram for malignant neoplasm of breast (principal); N64.89 Other specified disorders of breast ==

== ENCOUNTER → 2020-05-07 | Outpatient (CLI) | payer OTHER | END | disposition home or self-care (01) | LOC: US 09:52 | PROVIDERS: ATTEND Internal Medicine | DX: K83.8 Other specified diseases of biliary tract (principal); K86.89 Other specified diseases of pancreas; Z90.49 Acquired absence of other specified parts of digestive tract; Z96.89 Presence of other specified functional implants ==

== ENCOUNTER 2020-09-05 15:57 | Emergency (ER) | payer OTHER ==
[~2020-09-05] VITALS: Ht 167.6 cm; Wt 66.7 kg
[2020-09-05] MEDS ORDERED: NAPROXEN500 M1 PO (18:34)
== END 2020-09-05 18:56 | disposition home or self-care (01) ==
LOC: ED 15:57
DX: S40.012A Contusion of left shoulder, initial encounter (principal); Z87.891 Personal history of nicotine dependence; Z90.49 Acquired absence of other specified parts of digestive tract; Z90.710 Acquired absence of both cervix and uterus; Z79.82 Long term (current) use of aspirin; Z79.899 Other long term (current) drug therapy; Z91.030 Bee allergy status; Z88.8 Allergy status to other drugs, medicaments and biological substances; W18.09XA Striking against other object with subsequent fall, initial encounter; Y93.01 Activity, walking, marching and hiking; Y92.89 Other specified places as the place of occurrence of the external cause; Y99.9 Unspecified external cause status

== ENCOUNTER 2020-10-10 16:03 | Emergency (ER) | payer OTHER ==
[~2020-10-10] VITALS: Ht 167.6 cm; Wt 68.0 kg
[~2020-10-10 16:03] MED LIST changes: +NAPROXEN500 M1 PO
== END 2020-10-10 19:07 | disposition left against medical advice (07) ==
LOC: ED 16:03
DX: M79.672 Pain in left foot (principal); Z53.21 Procedure and treatment not carried out due to patient leaving prior to being seen by health care provider; W18.39XA Other fall on same level, initial encounter; Y93.89 Activity, other specified; Y92.89 Other specified places as the place of occurrence of the external cause; Y99.8 Other external cause status

== ENCOUNTER 2020-10-13 17:48 | Emergency (ER) | payer OTHER ==
[~2020-10-13] VITALS: Wt 68.0 kg
[2020-10-13 18:32] LABS: BASO % 0.3 % (0.0-1.0); HEMATOCRIT 34.1 % (37.0-47.0); LYMPH # 1.1 10*3/uL (1.3-4.4); LYMPH % 14.9 % (27.0-41.0); MEAN CELL VOLUME 91.4 fl (81.0-99.0); MEAN CORPUSCULAR HGB 29.5 pg (27.0-31.0); MEAN CORPUSCULAR HGB CONC 32.3 g/dl (33.0-37.0); MEAN PLATELET VOLUME 10.6 fl (9.6-12.3); MONO # 0.7 10*3/uL (0.1-1.0); MONO % 9.3 % (3.0-9.0); NEUT # 5.6 10*3/uL (2.3-7.9); NEUT % 75.1 % (47.0-73.0); PLATELET COUNT AUTOMATED 143 10*3/uL (130-400); RED BLOOD COUNT 3.73 10*6/uL (4.10-5.10); RED CELL DISTRI WIDTH 14.1 % (0-14.5); WHITE BLOOD COUNT 7.5 10*3/uL (4.8-10.8)
[2020-10-13 18:45] LABS: ALBUMIN 3.3 gm/dl (3.1-4.5); ALKALINE PHOSPHATASE 851 U/L (45-117); BUN 13 mg/dl (7-24); CHLORIDE 105 mmol/L (98-107); CREATININE 0.77 mg/dL (0.55-1.02); POTASSIUM 4.3 mmol/L (3.5-5.1); SGOT/AST 66 IU/L (3-35); SGPT/ALT 104 U/L (12-78); SODIUM 138 mmol/L (136-145); TOTAL PROTEIN 7.7 gm/dL (6.4-8.2)
[2020-10-13] MEDS ORDERED: ZYVOX600 MG PO (20:52)
== END 2020-10-13 20:55 | disposition left against medical advice (07) ==
LOC: ED 17:48
PROVIDERS: Nurse Practitioner Family
DX: M86.8X7 Other osteomyelitis, ankle and foot (principal); M79.662 Pain in left lower leg; E11.9 Type 2 diabetes mellitus without complications; F32.9 Major depressive disorder, single episode, unspecified; I10 Essential (primary) hypertension; Z88.8 Allergy status to other drugs, medicaments and biological substances; Z79.899 Other long term (current) drug therapy; Z79.82 Long term (current) use of aspirin; Z79.4 Long term (current) use of insulin; Z90.49 Acquired absence of other specified parts of digestive tract; Z98.890 Other specified postprocedural states; Z90.711 Acquired absence of uterus with remaining cervical stump; Z87.891 Personal history of nicotine dependence; V29.9XXA Motorcycle rider (driver) (passenger) injured in unspecified traffic accident, initial encounter; Y93.89 Activity, other specified; Y92.488 Other paved roadways as the place of occurrence of the external cause; Y99.8 Other external cause status

== ENCOUNTER 2020-11-02 06:08 | Inpatient (IN) | payer OTHER ==
[~2020-11-02] VITALS: Ht 167.6 cm; Wt 71.8 kg
[2020-11-02] VITALS (24 sets, daily range): BP systolic 108–146; BP diastolic 57–76
[2020-11-02 06:41] LABS: MEAN CELL VOLUME 90.2 fl (81.0-99.0); MEAN CORPUSCULAR HGB CONC 28.8 g/dl (33.0-37.0); MEAN PLATELET VOLUME 9.5 fl (9.6-12.3); NUCLEATED RED BLOOD CELL 0.2 % (0.0-0.0); PLATELET COUNT AUTOMATED 428 10*3/uL (130-400); RED BLOOD COUNT 2.04 10*6/uL (4.10-5.10); RED CELL DISTRI WIDTH 16.9 % (0-14.5); WHITE BLOOD COUNT 19.8 10*3/uL (4.8-10.8)
[2020-11-02 06:44] LABS: HEMATOCRIT 18.4 % (37.0-47.0)
[2020-11-02 06:54] LABS: ALBUMIN 2.1 gm/dl (3.1-4.5); ALKALINE PHOSPHATASE 703 U/L (45-117); BUN 20 mg/dl (7-24); CHLORIDE 99 mmol/L (98-107); SGOT/AST 19 IU/L (3-35); SODIUM 131 mmol/L (136-145); TOTAL PROTEIN 7.7 gm/dL (6.4-8.2)
[2020-11-02 06:55] LABS: SGPT/ALT 28 U/L (12-78)
[2020-11-02 07:33] LABS: PLATELET SUFFICIENCY HIGH (NORMAL); POLYCHROMASIA SLIGHT; TOTAL CELLS COUNTED 100 #CELLS
[2020-11-02] MEDS ORDERED: FLUOXETINE HCL40 MG PO (12:22)
[2020-11-02] MEDS ORDERED: ARIPIPRAZOLE15 MG PO (12:23)
[2020-11-02] MEDS ORDERED: SPIRIVA RESPIMAT4 GM INH (12:24)
[2020-11-02] MEDS ORDERED: Motrin,Rufen800 MG PO (12:26)
[2020-11-02 12:55] LABS: HEMATOCRIT 19.5 % (37.0-47.0)
[2020-11-02 14:16] LABS: INTERNATIONAL NORM RATIO 1.1 (2.0-3.5)
[2020-11-02 22:07] LABS: HEMATOCRIT 22.1 % (37.0-47.0); MEAN CELL VOLUME 93.2 fl (81.0-99.0); MEAN PLATELET VOLUME 9.4 fl (9.6-12.3); NUCLEATED RED BLOOD CELL 0.1 10*3/uL (0.0-0.0); NUCLEATED RED BLOOD CELL 0.4 % (0.0-0.0); PLATELET COUNT AUTOMATED 332 10*3/uL (130-400); RED BLOOD COUNT 2.37 10*6/uL (4.10-5.10); WHITE BLOOD COUNT 19.2 10*3/uL (4.8-10.8)
[2020-11-02 22:24] LABS: PLATELET SUFFICIENCY NORMAL (NORMAL); TOTAL CELLS COUNTED 100 #CELLS
[2020-11-02 22:25] LABS: BURR CELLS FEW; POLYCHROMASIA SLIGHT
[2020-11-02 22:26] LABS: MICROCYTOSIS SLIGHT
[2020-11-03] VITALS (9 sets, daily range): BP systolic 108–138; BP diastolic 63–83
[2020-11-03 06:41] LABS: ALBUMIN 1.6 gm/dl (3.1-4.5); BUN 14 mg/dl (7-24); CHLORIDE 105 mmol/L (98-107); POTASSIUM 4.1 mmol/L (3.5-5.1); SODIUM 134 mmol/L (136-145)
[2020-11-03 06:42] LABS: BASO % 0.3 % (0.0-1.0); EOS % 0.1 % (1.0-4.0); HEMATOCRIT 22.4 % (37.0-47.0); LYMPH # 1.3 10*3/uL (1.3-4.4); LYMPH % 8.6 % (27.0-41.0); MEAN CORPUSCULAR HGB 27.2 pg (27.0-31.0); MEAN CORPUSCULAR HGB CONC 31.7 g/dl (33.0-37.0); MEAN PLATELET VOLUME 9.7 fl (9.6-12.3); MONO # 1.3 10*3/uL (0.1-1.0); MONO % 8.3 % (3.0-9.0); NEUT # 12.7 10*3/uL (2.3-7.9); NEUT % 82.2 % (47.0-73.0); NUCLEATED RED BLOOD CELL 0.3 % (0.0-0.0); PLATELET COUNT AUTOMATED 318 10*3/uL (130-400); RED BLOOD COUNT 2.61 10*6/uL (4.10-5.10); RED CELL DISTRI WIDTH 16.9 % (0-14.5); WHITE BLOOD COUNT 15.5 10*3/uL (4.8-10.8)
[2020-11-03 06:43] LABS: MEAN CELL VOLUME 85.8 fl (81.0-99.0)
[2020-11-03 06:52] LABS: ALKALINE PHOSPHATASE 567 U/L (45-117); CHOLESTEROL 78 mg/dL (<200); CREATININE 0.61 mg/dL (0.55-1.02); LDL CHOLESTEROL 37 mg/dL (9-159); SGOT/AST 16 IU/L (3-35); SGPT/ALT 22 U/L (12-78); THYROID STIM HORMONE (HS) 0.646 uIU/ml (0.358-4.75); TOTAL PROTEIN 6.4 gm/dL (6.4-8.2); TRIGLYCERIDES 76 mg/dl (<150)
[2020-11-03 07:49] LABS: VITAMIN D, 25-HYDROXY 39.6 ng/mL (30-100)
[2020-11-04] VITALS: BP 133/76
[2020-11-04 04:00] VITALS: BP 133/76
[2020-11-04 06:11] LABS: BASO % 0.2 % (0.0-1.0); HEMATOCRIT 23.2 % (37.0-47.0); LYMPH % 11.6 % (27.0-41.0); MEAN CELL VOLUME 87.9 fl (81.0-99.0); MEAN CORPUSCULAR HGB 26.9 pg (27.0-31.0); MEAN CORPUSCULAR HGB CONC 30.6 g/dl (33.0-37.0); MEAN PLATELET VOLUME 9.3 fl (9.6-12.3); MONO # 0.7 10*3/uL (0.1-1.0); MONO % 7.7 % (3.0-9.0); NEUT # 6.9 10*3/uL (2.3-7.9); NEUT % 79.6 % (47.0-73.0); PLATELET COUNT AUTOMATED 296 10*3/uL (130-400); RED BLOOD COUNT 2.64 10*6/uL (4.10-5.10); RED CELL DISTRI WIDTH 17.6 % (0-14.5); WHITE BLOOD COUNT 8.7 10*3/uL (4.8-10.8)
[2020-11-04 06:26] LABS: CHLORIDE 105 mmol/L (98-107); POTASSIUM 4.6 mmol/L (3.5-5.1); SODIUM 136 mmol/L (136-145)
[2020-11-04 06:33] LABS: ALBUMIN 1.9 gm/dl (3.1-4.5); ALKALINE PHOSPHATASE 668 U/L (45-117); BUN 15 mg/dl (7-24); CREATININE 0.58 mg/dL (0.55-1.02); SGOT/AST 22 IU/L (3-35); SGPT/ALT 23 U/L (12-78); TOTAL PROTEIN 6.7 gm/dL (6.4-8.2)
[2020-11-04 08:00] VITALS: BP 126/63
[2020-11-04 12:00] VITALS: BP 133/74
[2020-11-04 12:06] LABS: ACID FAST SPEC PROCESSING Tissue Grinding (.)
[2020-11-04 12:06] LABS: ACID FAST SPEC PROCESSING Direct Inoculation (.); ACID FAST SPEC PROCESSING Tissue Grinding (.)
[2020-11-04 12:06] LABS: ACID FAST SPEC PROCESSING Tissue Grinding (.)
[2020-11-04 16:00] VITALS: BP 112/62
[2020-11-04 20:00] VITALS: BP 120/72
[2020-11-05] VITALS (11 sets, daily range): BP systolic 117–154; BP diastolic 64–76
[2020-11-05 07:49] LABS: HEMATOCRIT 22.3 % (37.0-47.0); MEAN CELL VOLUME 89.6 fl (81.0-99.0); MEAN CORPUSCULAR HGB 26.9 pg (27.0-31.0); MEAN PLATELET VOLUME 8.9 fl (9.6-12.3); PLATELET COUNT AUTOMATED 260 10*3/uL (130-400); RED BLOOD COUNT 2.49 10*6/uL (4.10-5.10); RED CELL DISTRI WIDTH 18.2 % (0-14.5); WHITE BLOOD COUNT 7.7 10*3/uL (4.8-10.8)
[2020-11-05 08:07] LABS: ALBUMIN 1.9 gm/dl (3.1-4.5); ALKALINE PHOSPHATASE 845 U/L (45-117); BUN 15 mg/dl (7-24); CHLORIDE 106 mmol/L (98-107); CREATININE 0.63 mg/dL (0.55-1.02); POTASSIUM 4.4 mmol/L (3.5-5.1); SGOT/AST 38 IU/L (3-35); SGPT/ALT 32 U/L (12-78); SODIUM 137 mmol/L (136-145); TOTAL PROTEIN 6.6 gm/dL (6.4-8.2)
[2020-11-05 08:30] LABS: TOTAL CELLS COUNTED 100 #CELLS
[2020-11-05 08:31] LABS: PLATELET SUFFICIENCY NORMAL (NORMAL); POLYCHROMASIA MODERATE
[2020-11-05 08:47] LABS: RETICULOCYTE % 3.61 % (0.50-2.50)
[2020-11-05 17:11] LABS: BASO % 0.3 % (0.0-1.0); HEMATOCRIT 26.1 % (37.0-47.0); LYMPH # 1.1 10*3/uL (1.3-4.4); LYMPH % 15.9 % (27.0-41.0); MEAN CELL VOLUME 89.7 fl (81.0-99.0); MEAN CORPUSCULAR HGB 27.1 pg (27.0-31.0); MEAN CORPUSCULAR HGB CONC 30.3 g/dl (33.0-37.0); MEAN PLATELET VOLUME 9.1 fl (9.6-12.3); MONO # 0.6 10*3/uL (0.1-1.0); NEUT # 5.1 10*3/uL (2.3-7.9); NEUT % 73.8 % (47.0-73.0); PLATELET COUNT AUTOMATED 265 10*3/uL (130-400); RED BLOOD COUNT 2.91 10*6/uL (4.10-5.10); RED CELL DISTRI WIDTH 17.3 % (0-14.5); WHITE BLOOD COUNT 6.9 10*3/uL (4.8-10.8)
[2020-11-06] VITALS (9 sets, daily range): BP systolic 118–158; BP diastolic 50–88
[2020-11-06 06:14] LABS: CHLORIDE 107 mmol/L (98-107); POTASSIUM 4.3 mmol/L (3.5-5.1); SODIUM 140 mmol/L (136-145)
[2020-11-06 06:19] LABS: BASO % 0.3 % (0.0-1.0); HEMATOCRIT 26.5 % (37.0-47.0); LYMPH # 1.1 10*3/uL (1.3-4.4); LYMPH % 15.1 % (27.0-41.0); MEAN CELL VOLUME 89.8 fl (81.0-99.0); MEAN CORPUSCULAR HGB 26.8 pg (27.0-31.0); MEAN CORPUSCULAR HGB CONC 29.8 g/dl (33.0-37.0); MEAN PLATELET VOLUME 9.5 fl (9.6-12.3); MONO # 0.7 10*3/uL (0.1-1.0); MONO % 9.1 % (3.0-9.0); NEUT # 5.4 10*3/uL (2.3-7.9); NEUT % 74.8 % (47.0-73.0); PLATELET COUNT AUTOMATED 268 10*3/uL (130-400); RED BLOOD COUNT 2.95 10*6/uL (4.10-5.10); RED CELL DISTRI WIDTH 17.4 % (0-14.5); WHITE BLOOD COUNT 7.2 10*3/uL (4.8-10.8)
[2020-11-06 06:26] LABS: ALBUMIN 1.9 gm/dl (3.1-4.5); ALKALINE PHOSPHATASE 852 U/L (45-117); BUN 12 mg/dl (7-24); CREATININE 0.55 mg/dL (0.55-1.02); GAMMA GLUTAMYL TRANSPEPTIDASE 679 U/L (5-55); SGOT/AST 41 IU/L (3-35); SGPT/ALT 37 U/L (12-78); TOTAL PROTEIN 6.6 gm/dL (6.4-8.2)
[2020-11-06 15:07] LABS: A/G RATIO 0.6 (0.7-1.7); ALBUMIN 2.2 g/dL (2.9-4.4); ALPHA-1-GLOBULIN 0.4 g/dL (0.0-0.4); ALPHA-2-GLOBULIN 0.8 g/dL (0.4-1.0); GAMMA GLOBULIN 1.6 g/dL (0.4-1.8); GLOBULIN, TOTAL 3.8 g/dL (2.2-3.9); M-SPIKE 0.3 g/dL (Not Observed)
[2020-11-07] VITALS: BP 114/61
[2020-11-07 07:21] LABS: BASO % 0.1 % (0.0-1.0); LYMPH # 1.2 10*3/uL (1.3-4.4); LYMPH % 14.7 % (27.0-41.0); MEAN CELL VOLUME 90.6 fl (81.0-99.0); MEAN CORPUSCULAR HGB 26.8 pg (27.0-31.0); MEAN CORPUSCULAR HGB CONC 29.6 g/dl (33.0-37.0); MEAN PLATELET VOLUME 9.6 fl (9.6-12.3); MONO # 0.8 10*3/uL (0.1-1.0); MONO % 9.3 % (3.0-9.0); NEUT % 75.2 % (47.0-73.0); PLATELET COUNT AUTOMATED 238 10*3/uL (130-400); RED BLOOD COUNT 2.87 10*6/uL (4.10-5.10); RED CELL DISTRI WIDTH 17.2 % (0-14.5)
[2020-11-07 08:00] VITALS: BP 147/83
[2020-11-07 08:00] LABS: ALBUMIN 1.9 gm/dl (3.1-4.5); ALKALINE PHOSPHATASE 901 U/L (45-117); BUN 14 mg/dl (7-24); CHLORIDE 105 mmol/L (98-107); CREATININE 0.63 mg/dL (0.55-1.02); POTASSIUM 4.2 mmol/L (3.5-5.1); SGOT/AST 57 IU/L (3-35); SGPT/ALT 51 U/L (12-78); SODIUM 139 mmol/L (136-145); TOTAL PROTEIN 6.5 gm/dL (6.4-8.2)
[2020-11-07 11:08] LABS: ACID FAST SPEC PROCESSING Tissue Grinding (.)
[2020-11-07] MEDS ORDERED: AUGMENTIN 875-875 MG PO (11:23)
[2020-11-07] MEDS ORDERED: ERTAPENEM1 GM IV (11:23)
[2020-11-07 12:00] VITALS: BP 140/66
[2020-11-07 16:00] VITALS: BP 161/99
[2020-11-07 20:00] VITALS: BP 152/73
[2020-11-08] VITALS: BP 140/73
[2020-11-08 08:08] VITALS: BP 151/81
[2020-11-08 17:06] LABS: ALBUMIN, URINE 37.6 % (.); ALPHA-1-GLOBULIN, URINE 6.7 % (.); ALPHA-2-GLOBULIN, URINE 18.1 % (.); BETA GLOBULIN, URINE 17.6 % (.); M-SPIKE, % Not Observed % (Not Observed); PROTEIN,TOTAL - URINE RANDOM 9.4 mg/dL (Not Estab.)
[2020-11-18 15:06] LABS: ANAEROBE RESULT 1 Gram positive cocci (.); ANAEROBE RESULT 2 Prevotella species (.)
== END 2020-11-08 11:20 | disposition home health service (06) | DRG 710 ==
LOC: ED 06:08 → EDHOLD 08:48 → 4E 08:48
PROVIDERS: Internal Medicine; Podiatrist; Podiatrist Foot & Ankle Surgery; Student in an Organized Health Care Education/Training Program; ADMIT Internal Medicine; ATTEND Internal Medicine
PROC: 0Y9N0ZZ Drainage of Left Foot, Open Approach (ICD-10-PCS; principal; 2020-11-02)
PROC: 2W1MX6Z Compression of Left Lower Extremity using Pressure Dressing (ICD-10-PCS; 2020-11-02)
PROC: 0Y6N0Z9 Detachment at Left Foot, Partial 1st Ray, Open Approach (ICD-10-PCS; 2020-11-02)
PROC: 0Y6N0ZB Detachment at Left Foot, Partial 2nd Ray, Open Approach (ICD-10-PCS; 2020-11-02)
PROC: 0Y6N0ZC Detachment at Left Foot, Partial 3rd Ray, Open Approach (ICD-10-PCS; 2020-11-02)
PROC: 30233N1 Transfusion of Nonautologous Red Blood Cells into Peripheral Vein, Percutaneous Approach (ICD-10-PCS; 2020-11-02)
PROC: 0QBP0ZX Excision of Left Metatarsal, Open Approach, Diagnostic (ICD-10-PCS; 2020-11-06)
PROC: 0HQNXZZ Repair Left Foot Skin, External Approach (ICD-10-PCS; 2020-11-06)
PROC: 2W3MX1Z Immobilization of Left Lower Extremity using Splint (ICD-10-PCS; 2020-11-06)
PROC: 05HB33Z Insertion of Infusion Device into Right Basilic Vein, Percutaneous Approach (ICD-10-PCS; 2020-11-07)
DX: A41.9 Sepsis, unspecified organism (principal); M86.172 Other acute osteomyelitis, left ankle and foot; D64.9 Anemia, unspecified; S91.309A Unspecified open wound, unspecified foot, initial encounter; L03.116 Cellulitis of left lower limb; A48.0 Gas gangrene; I34.1 Nonrheumatic mitral (valve) prolapse; E11.69 Type 2 diabetes mellitus with other specified complication; E11.65 Type 2 diabetes mellitus with hyperglycemia; I50.32 Chronic diastolic (congestive) heart failure; F31.9 Bipolar disorder, unspecified; G89.29 Other chronic pain; I10 Essential (primary) hypertension; K21.9 Gastro-esophageal reflux disease without esophagitis; E66.9 Obesity, unspecified; J44.9 Chronic obstructive pulmonary disease, unspecified; E55.9 Vitamin D deficiency, unspecified; E11.52 Type 2 diabetes mellitus with diabetic peripheral angiopathy with gangrene; E11.42 Type 2 diabetes mellitus with diabetic polyneuropathy; E11.51 Type 2 diabetes mellitus with diabetic peripheral angiopathy without gangrene; E43 Unspecified severe protein-calorie malnutrition; K74.60 Unspecified cirrhosis of liver; Z88.8 Allergy status to other drugs, medicaments and biological substances; Z79.51 Long term (current) use of inhaled steroids; Z90.49 Acquired absence of other specified parts of digestive tract; Z82.49 Family history of ischemic heart disease and other diseases of the circulatory system; Z90.710 Acquired absence of both cervix and uterus; Z87.891 Personal history of nicotine dependence; Z91.030 Bee allergy status; Z79.899 Other long term (current) drug therapy; Z79.82 Long term (current) use of aspirin; Z68.1 Body mass index [BMI] 19.9 or less, adult

== ENCOUNTER 2021-02-06 09:44 | Inpatient (IN) | payer OTHER ==
[2021-02-06] VITALS (8 sets, daily range): BP systolic 96–125; BP diastolic 62–82
[~2021-02-06] VITALS: Ht 167.6 cm; Wt 70.8 kg
[~2021-02-06 09:44] MED LIST changes: +ARIPIPRAZOLE15 MG PO; +AUGMENTIN 875-875 MG PO; +ERTAPENEM1 GM IV; +FLUOXETINE HCL40 MG PO; -GLUCOPHAGE1000 MG PO; +GLUCOPHAGE500 MG PO; +SPIRIVA RESPIMAT4 GM INH
[2021-02-06 13:20] LABS: MEAN CELL VOLUME 70.1 fl (81.0-99.0); NUCLEATED RED BLOOD CELL 0.1 % (0.0-0.0); PLATELET COUNT AUTOMATED 178 10*3/uL (130-400); RED BLOOD COUNT 4.71 10*6/uL (4.10-5.10)
[2021-02-06 13:28] LABS: WHITE BLOOD COUNT 44.2 10*3/uL (4.8-10.8)
[2021-02-06 13:32] LABS: ACT PARTIAL THROMBO TIME 26.2 SECONDS (20.0-32.1)
[2021-02-06 13:38] LABS: CREATININE 1.5 mg/dL (0.55-1.02); POTASSIUM 2.8 mmol/L (3.5-5.1); TOTAL PROTEIN 7.3 gm/dL (6.4-8.2)
[2021-02-06 13:48] LABS: DOHLE BODIES FEW; MICROCYTOSIS MODERATE; PLATELET SUFFICIENCY NORMAL (NORMAL); SCHISTOCYTES FEW; TOTAL CELLS COUNTED 100 #CELLS; TOXIC GRANULATION MODERATE
[2021-02-06 13:49] LABS: ACANTHOCYTES FEW
[2021-02-06 13:58] LABS: ALBUMIN 1.6 gm/dl (3.1-4.5)
[2021-02-06 23:29] LABS: BILIRUBIN 2+ (Negative); BLOOD Negative (Negative); CLARITY Cloudy (Clear); COLOR Dark Yellow (Yellow); GLUCOSE Negative (Negative); KETONE Trace (Negative); LEUKO ESTERASE Trace (Negative); NITRITE Negative (Negative); SPECIFIC GRAVITY >= 1.030 (1.001-1.030)
[2021-02-06 23:45] LABS: BACTERIA 2+; EPITHELIAL CELLS 16-20
[2021-02-07] VITALS (16 sets, daily range): BP systolic 109–138; BP diastolic 62–82
[2021-02-07 04:36] LABS: HEMATOCRIT 25.1 % (37.0-47.0); MEAN CELL VOLUME 70.1 fl (81.0-99.0); MEAN CORPUSCULAR HGB 21.2 pg (27.0-31.0); MEAN CORPUSCULAR HGB CONC 30.3 g/dl (33.0-37.0); MEAN PLATELET VOLUME 11.2 fl (9.6-12.3); PLATELET COUNT AUTOMATED 135 10*3/uL (130-400); RED BLOOD COUNT 3.58 10*6/uL (4.10-5.10); RED CELL DISTRI WIDTH 18.6 % (0-14.5); WHITE BLOOD COUNT 29.7 10*3/uL (4.8-10.8)
[2021-02-07 05:04] LABS: ALBUMIN 1.4 gm/dl (3.1-4.5); ALKALINE PHOSPHATASE 401 U/L (45-117); BUN 65 mg/dl (7-24); CHLORIDE 109 mmol/L (98-107); POTASSIUM 3.4 mmol/L (3.5-5.1); SGOT/AST 56 IU/L (3-35); SGPT/ALT 37 U/L (12-78); SODIUM 135 mmol/L (136-145); TOTAL PROTEIN 5.9 gm/dL (6.4-8.2)
[2021-02-07 05:30] LABS: TOTAL CELLS COUNTED 100 #CELLS
[2021-02-07 05:31] LABS: ACANTHOCYTES FEW; BURR CELLS FEW; PLATELET SUFFICIENCY NORMAL (NORMAL); SCHISTOCYTES FEW; TOXIC GRANULATION SLIGHT
[2021-02-07] MEDS ORDERED: VITAMIN D3125 MCG PO (06:48)
[2021-02-07] MEDS ORDERED: METFORMIN HYDR500 MG PO (06:50)
[2021-02-08 03:13] VITALS: BP 121/68
[2021-02-08 05:19] LABS: ALBUMIN 1.3 gm/dl (3.1-4.5); CHLORIDE 113 mmol/L (98-107); CREATININE 0.77 mg/dL (0.55-1.02); POTASSIUM 3.8 mmol/L (3.5-5.1); SGOT/AST 66 IU/L (3-35); SGPT/ALT 40 U/L (12-78); SODIUM 143 mmol/L (136-145); TOTAL PROTEIN 6.1 gm/dL (6.4-8.2)
[2021-02-08 05:20] LABS: ALKALINE PHOSPHATASE 753 U/L (45-117)
[2021-02-08 05:44] LABS: BUN 43 mg/dl (7-24)
[2021-02-08 06:00] LABS: HEMATOCRIT 23.5 % (37.0-47.0); MEAN CELL VOLUME 69.7 fl (81.0-99.0); MEAN CORPUSCULAR HGB 21.1 pg (27.0-31.0); MEAN CORPUSCULAR HGB CONC 30.2 g/dl (33.0-37.0); MEAN PLATELET VOLUME 10.6 fl (9.6-12.3); PLATELET COUNT AUTOMATED 114 10*3/uL (130-400); RED BLOOD COUNT 3.37 10*6/uL (4.10-5.10); WHITE BLOOD COUNT 12.6 10*3/uL (4.8-10.8)
[2021-02-08 07:20] LABS: MICROCYTOSIS MODERATE; PLATELET SUFFICIENCY LOW (NORMAL); TOTAL CELLS COUNTED 100 #CELLS
[2021-02-08 07:21] LABS: ROULEAUX MODERATE
[2021-02-08 08:59] VITALS: BP 126/74
[2021-02-08 09:02] VITALS: BP 137/91
[2021-02-08 12:00] VITALS: BP 144/87
[2021-02-08 16:00] VITALS: BP 160/87
[2021-02-08 20:00] VITALS: BP 145/81
[2021-02-09] VITALS: BP 134/89
[2021-02-09 06:36] LABS: BASO % 0.1 % (0.0-1.0); HEMATOCRIT 23.4 % (37.0-47.0); LYMPH # 0.8 10*3/uL (1.3-4.4); LYMPH % 9.4 % (27.0-41.0); MEAN CORPUSCULAR HGB 20.9 pg (27.0-31.0); MEAN CORPUSCULAR HGB CONC 30.3 g/dl (33.0-37.0); MEAN PLATELET VOLUME 10.2 fl (9.6-12.3); MONO # 0.3 10*3/uL (0.1-1.0); MONO % 3.8 % (3.0-9.0); NEUT # 7.2 10*3/uL (2.3-7.9); NEUT % 84.2 % (47.0-73.0); PLATELET COUNT AUTOMATED 103 10*3/uL (130-400); RED BLOOD COUNT 3.39 10*6/uL (4.10-5.10); RED CELL DISTRI WIDTH 19.2 % (0-14.5); WHITE BLOOD COUNT 8.5 10*3/uL (4.8-10.8)
[2021-02-09 06:54] LABS: CHLORIDE 111 mmol/L (98-107); CREATININE 0.57 mg/dL (0.55-1.02); POTASSIUM 3.6 mmol/L (3.5-5.1); SODIUM 142 mmol/L (136-145)
[2021-02-09 07:01] LABS: BUN 25 mg/dl (7-24)
[2021-02-09 08:00] VITALS: BP 142/92
[2021-02-09 12:00] VITALS: BP 146/89
[2021-02-09 16:00] VITALS: BP 154/90
[2021-02-09 20:00] VITALS: BP 132/85
[2021-02-10 00:29] VITALS: BP 137/80
[2021-02-10 07:07] LABS: BASO % 0.1 % (0.0-1.0); HEMATOCRIT 24.4 % (37.0-47.0); LYMPH # 0.8 10*3/uL (1.3-4.4); LYMPH % 8.5 % (27.0-41.0); MEAN CELL VOLUME 68.7 fl (81.0-99.0); MEAN CORPUSCULAR HGB 20.8 pg (27.0-31.0); MEAN CORPUSCULAR HGB CONC 30.3 g/dl (33.0-37.0); MONO # 0.4 10*3/uL (0.1-1.0); MONO % 4.4 % (3.0-9.0); NEUT # 8.3 10*3/uL (2.3-7.9); NEUT % 85.6 % (47.0-73.0); PLATELET COUNT AUTOMATED 105 10*3/uL (130-400); RED BLOOD COUNT 3.55 10*6/uL (4.10-5.10); RED CELL DISTRI WIDTH 19.2 % (0-14.5); WHITE BLOOD COUNT 9.7 10*3/uL (4.8-10.8)
[2021-02-10 07:18] LABS: CHLORIDE 109 mmol/L (98-107); POTASSIUM 3.4 mmol/L (3.5-5.1); SODIUM 141 mmol/L (136-145)
[2021-02-10 07:19] LABS: LDH 168 U/L (84-246)
[2021-02-10 07:26] LABS: BUN 15 mg/dl (7-24)
[2021-02-10 08:00] VITALS: BP 150/88
[2021-02-10 12:00] VITALS: BP 148/88
[2021-02-10 16:00] VITALS: BP 169/103
[2021-02-10 20:00] VITALS: BP 150/84
[2021-02-11] VITALS (12 sets, daily range): BP systolic 144–162; BP diastolic 82–89
[2021-02-11 07:10] LABS: HEMATOCRIT 21.9 % (37.0-47.0); MEAN CELL VOLUME 68.4 fl (81.0-99.0); MEAN CORPUSCULAR HGB 21.3 pg (27.0-31.0); MEAN CORPUSCULAR HGB CONC 31.1 g/dl (33.0-37.0); PLATELET COUNT AUTOMATED 114 10*3/uL (130-400); WHITE BLOOD COUNT 9.8 10*3/uL (4.8-10.8)
[2021-02-11 07:26] LABS: ALBUMIN 1.4 gm/dl (3.1-4.5); BUN 11 mg/dl (7-24); CHLORIDE 108 mmol/L (98-107); CREATININE 0.48 mg/dL (0.55-1.02); POTASSIUM 3.9 mmol/L (3.5-5.1); SGOT/AST 45 IU/L (3-35); SGPT/ALT 36 U/L (12-78); SODIUM 141 mmol/L (136-145); TOTAL PROTEIN 6.8 gm/dL (6.4-8.2)
[2021-02-11 07:39] LABS: ALKALINE PHOSPHATASE 1065 U/L (45-117)
[2021-02-11 07:55] LABS: TOTAL CELLS COUNTED 100 #CELLS; TOXIC GRANULATION MODERATE; VACUOLATION OF NEUTROPHILS SLIGHT
[2021-02-11 07:56] LABS: MICROCYTOSIS MODERATE; OVALOCYTES FEW; PLATELET SUFFICIENCY LOW (NORMAL); POLYCHROMASIA SLIGHT; ROULEAUX SLIGHT; TARGET CELLS FEW
[2021-02-11] MEDS ORDERED: LEVOFLOXACIN750 M2 PO (18:58)
[2021-02-12] VITALS: BP 161/89
[2021-02-12 06:56] LABS: BASO % 0.1 % (0.0-1.0); HEMATOCRIT 25.5 % (37.0-47.0); LYMPH % 10.2 % (27.0-41.0); MEAN CORPUSCULAR HGB 21.7 pg (27.0-31.0); MEAN CORPUSCULAR HGB CONC 29.4 g/dl (33.0-37.0); MEAN PLATELET VOLUME 10.7 fl (9.6-12.3); MONO # 0.6 10*3/uL (0.1-1.0); MONO % 5.7 % (3.0-9.0); NEUT % 83.1 % (47.0-73.0); RED BLOOD COUNT 3.45 10*6/uL (4.10-5.10); RED CELL DISTRI WIDTH 21.3 % (0-14.5); WHITE BLOOD COUNT 9.6 10*3/uL (4.8-10.8)
[2021-02-12 06:58] LABS: MEAN CELL VOLUME 73.9 fl (81.0-99.0); PLATELET COUNT AUTOMATED 152 10*3/uL (130-400)
[2021-02-12 07:00] LABS: ALBUMIN 1.4 gm/dl (3.1-4.5); BUN 9 mg/dl (7-24); CHLORIDE 106 mmol/L (98-107); CREATININE 0.43 mg/dL (0.55-1.02); POTASSIUM 3.6 mmol/L (3.5-5.1); SGOT/AST 47 IU/L (3-35); SGPT/ALT 37 U/L (12-78); SODIUM 140 mmol/L (136-145)
[2021-02-12 07:16] LABS: ALKALINE PHOSPHATASE 1048 U/L (45-117)
[2021-02-12 08:00] VITALS: BP 155/81
[2021-02-12] MEDS ORDERED: LEVOFLOXACIN750 M2 PO ×2 (10:56→11:02)
[2021-02-12] MEDS ORDERED: METRONIDAZOLE500 M1 PO ×2 (10:57→11:02)
[2021-02-12 12:00] VITALS: BP 155/83
== END 2021-02-12 14:45 | disposition left against medical advice (07) | DRG 720 ==
LOC: ED 09:44 → 5E 14:01 → EDHOLD 14:01 → 5E 02-08 07:03
PROVIDERS: Emergency Medicine; Family Medicine; Internal Medicine; Student in an Organized Health Care Education/Training Program; ADMIT Internal Medicine; ATTEND Internal Medicine
PROC: 02HV33Z Insertion of Infusion Device into Superior Vena Cava, Percutaneous Approach (ICD-10-PCS; 2021-02-06)
PROC: B548ZZA Ultrasonography of Superior Vena Cava, Guidance (ICD-10-PCS; 2021-02-06)
PROC: 30233N1 Transfusion of Nonautologous Red Blood Cells into Peripheral Vein, Percutaneous Approach (ICD-10-PCS; principal; 2021-02-11)
DX: A41.89 Other specified sepsis (principal); J85.1 Abscess of lung with pneumonia; N17.0 Acute kidney failure with tubular necrosis; R65.20 Severe sepsis without septic shock; J13 Pneumonia due to Streptococcus pneumoniae; E83.41 Hypermagnesemia; E43 Unspecified severe protein-calorie malnutrition; I50.30 Unspecified diastolic (congestive) heart failure; K74.60 Unspecified cirrhosis of liver; E87.1 Hypo-osmolality and hyponatremia; D50.9 Iron deficiency anemia, unspecified; E87.6 Hypokalemia; J91.8 Pleural effusion in other conditions classified elsewhere; J44.0 Chronic obstructive pulmonary disease with (acute) lower respiratory infection; E11.69 Type 2 diabetes mellitus with other specified complication; F31.9 Bipolar disorder, unspecified; E11.65 Type 2 diabetes mellitus with hyperglycemia; D64.9 Anemia, unspecified; I34.1 Nonrheumatic mitral (valve) prolapse; M86.9 Osteomyelitis, unspecified; A48.0 Gas gangrene; S92.909A Unspecified fracture of unspecified foot, initial encounter for closed fracture; D69.6 Thrombocytopenia, unspecified; E66.01 Morbid (severe) obesity due to excess calories; J96.01 Acute respiratory failure with hypoxia; Z90.49 Acquired absence of other specified parts of digestive tract; Z91.030 Bee allergy status; Z88.8 Allergy status to other drugs, medicaments and biological substances; Z82.49 Family history of ischemic heart disease and other diseases of the circulatory system; Z68.25 Body mass index [BMI] 25.0-25.9, adult; Z79.51 Long term (current) use of inhaled steroids; Z79.82 Long term (current) use of aspirin; Z79.4 Long term (current) use of insulin; Y93.89 Activity, other specified; Y92.89 Other specified places as the place of occurrence of the external cause; Y99.8 Other external cause status

== ENCOUNTER 2021-06-26 17:17 | Emergency (ER) | payer OTHER ==
[~2021-06-26] VITALS: Wt 72.6 kg
[~2021-06-26 17:17] MED LIST changes: +LEVOFLOXACIN750 M2 PO; +METFORMIN HYDR500 MG PO; +METRONIDAZOLE500 M1 PO
[2021-06-26 17:57] LABS: BASO % 0.6 % (0.0-1.0); EOS % 0.3 % (1.0-4.0); HEMATOCRIT 30.2 % (37.0-47.0); LYMPH # 1.1 10*3/uL (1.3-4.4); LYMPH % 31.3 % (27.0-41.0); MEAN CELL VOLUME 74.9 fl (81.0-99.0); MEAN CORPUSCULAR HGB 21.8 pg (27.0-31.0); MEAN CORPUSCULAR HGB CONC 29.1 g/dl (33.0-37.0); MEAN PLATELET VOLUME 10.1 fl (9.6-12.3); MONO # 0.3 10*3/uL (0.1-1.0); MONO % 9.1 % (3.0-9.0); NEUT # 2.1 10*3/uL (2.3-7.9); NEUT % 58.4 % (47.0-73.0); PLATELET COUNT AUTOMATED 94 10*3/uL (130-400); RED BLOOD COUNT 4.03 10*6/uL (4.10-5.10); RED CELL DISTRI WIDTH 20.6 % (0-14.5); WHITE BLOOD COUNT 3.6 10*3/uL (4.8-10.8)
[2021-06-26 18:10] LABS: ACT PARTIAL THROMBO TIME 25.1 SECONDS (20.0-32.1)
[2021-06-26 18:18] LABS: ALKALINE PHOSPHATASE 615 U/L (45-117); BUN 16 mg/dl (7-24); CHLORIDE 107 mmol/L (98-107); CREATININE 0.83 mg/dL (0.55-1.02); POTASSIUM 4.1 mmol/L (3.5-5.1); SGOT/AST 136 IU/L (3-35); SGPT/ALT 175 U/L (12-78); SODIUM 137 mmol/L (136-145); TOTAL PROTEIN 7.1 gm/dL (6.4-8.2)
== END 2021-06-26 18:44 | disposition home or self-care (01) ==
LOC: ED 17:17
PROVIDERS: Emergency Medicine
DX: R07.89 Other chest pain (principal); D61.818 Other pancytopenia; K76.9 Liver disease, unspecified; J44.9 Chronic obstructive pulmonary disease, unspecified; K21.9 Gastro-esophageal reflux disease without esophagitis; E66.9 Obesity, unspecified; E11.9 Type 2 diabetes mellitus without complications; Z91.030 Bee allergy status; Z88.8 Allergy status to other drugs, medicaments and biological substances; Z79.899 Other long term (current) drug therapy; Z79.82 Long term (current) use of aspirin; Z87.891 Personal history of nicotine dependence

== ENCOUNTER 2021-10-03 16:45 | Emergency (ER) | payer OTHER ==
[~2021-10-03] VITALS: Ht 167.6 cm; Wt 73.5 kg
[2021-10-03 17:42] LABS: BASO % 0.4 % (0.0-1.0); EOS % 0.9 % (1.0-4.0); HEMATOCRIT 32.5 % (37.0-47.0); LYMPH # 0.7 10*3/uL (1.3-4.4); LYMPH % 16.3 % (27.0-41.0); MEAN CORPUSCULAR HGB 25.4 pg (27.0-31.0); MEAN CORPUSCULAR HGB CONC 31.7 g/dl (33.0-37.0); MEAN PLATELET VOLUME 9.9 fl (9.6-12.3); MONO # 0.5 10*3/uL (0.1-1.0); MONO % 10.3 % (3.0-9.0); NEUT # 3.2 10*3/uL (2.3-7.9); NEUT % 71.9 % (47.0-73.0); PLATELET COUNT AUTOMATED 99 10*3/uL (130-400); RED BLOOD COUNT 4.06 10*6/uL (4.10-5.10); RED CELL DISTRI WIDTH 17.3 % (0-14.5); WHITE BLOOD COUNT 4.5 10*3/uL (4.8-10.8)
[2021-10-03 17:59] LABS: ALKALINE PHOSPHATASE 389 U/L (45-117); BUN 19 mg/dl (7-24); CHLORIDE 109 mmol/L (98-107); SGOT/AST 72 IU/L (3-35); SODIUM 139 mmol/L (136-145); TOTAL PROTEIN 6.9 gm/dL (6.4-8.2)
[2021-10-03 18:05] LABS: SGPT/ALT 102 U/L (12-78)
== END 2021-10-03 20:35 | disposition home or self-care (01) ==
LOC: ED 16:45
PROVIDERS: Emergency Medicine
DX: R42 Dizziness and giddiness (principal); T50.Z95A Adverse effect of other vaccines and biological substances, initial encounter; Z91.030 Bee allergy status; Z88.8 Allergy status to other drugs, medicaments and biological substances; Z91.018 Allergy to other foods; Z79.899 Other long term (current) drug therapy; Z79.82 Long term (current) use of aspirin; Z90.49 Acquired absence of other specified parts of digestive tract; Z90.710 Acquired absence of both cervix and uterus; Z98.890 Other specified postprocedural states; Z87.891 Personal history of nicotine dependence; Y92.89 Other specified places as the place of occurrence of the external cause

== ENCOUNTER 2022-05-22 19:02 | Emergency (ER) | payer OTHER ==
[~2022-05-22 19:02] MED LIST changes: +ANTIVERT25 M2 PO
== END 2022-05-22 20:18 | disposition left against medical advice (07) ==
LOC: ED 19:02
DX: R51.9 Headache, unspecified (principal); R05.9 Cough, unspecified; Z53.21 Procedure and treatment not carried out due to patient leaving prior to being seen by health care provider

== ENCOUNTER 2022-05-24 09:30 | Emergency (ER) | payer OTHER ==
[~2022-05-24] VITALS: Ht 167.6 cm; Wt 78.0 kg
[2022-05-24] MEDS ORDERED: PROVENTIL HFA6.7 GM PO (10:08)
[2022-05-24] MEDS ORDERED: VIBRA-TAB100 MG PO (10:08)
[2022-05-24] MEDS ORDERED: PREDNISONE50 MG PO (10:08)
[2022-05-24] MEDS ORDERED: Ondansetron4 MG PO (10:08)
== END 2022-05-24 10:14 | disposition home or self-care (01) ==
LOC: ED 09:30
DX: R11.2 Nausea with vomiting, unspecified (principal); J40 Bronchitis, not specified as acute or chronic; J44.9 Chronic obstructive pulmonary disease, unspecified; F32.A Depression, unspecified; E11.9 Type 2 diabetes mellitus without complications; I10 Essential (primary) hypertension; D64.9 Anemia, unspecified; I34.1 Nonrheumatic mitral (valve) prolapse; Z91.030 Bee allergy status; Z91.018 Allergy to other foods; Z88.8 Allergy status to other drugs, medicaments and biological substances; Z90.49 Acquired absence of other specified parts of digestive tract; Z90.710 Acquired absence of both cervix and uterus; Z98.890 Other specified postprocedural states; Z87.891 Personal history of nicotine dependence

== ENCOUNTER 2022-07-05 17:44 | Emergency (ER) | payer OTHER ==
[~2022-07-05] VITALS: Ht 167.6 cm; Wt 78.0 kg
[~2022-07-05 17:44] MED LIST changes: +Ondansetron4 MG PO; +PREDNISONE50 MG PO; +PROVENTIL HFA6.7 GM PO; +REXULTI2 MG PO; +TRULICITY0.75 MG/0. SC; +VIBRA-TAB100 MG PO
[2022-07-05 19:04] LABS: BASO # 0.1 10*3/uL (0.0-0.1); BASO % 0.6 % (0.0-1.0); EOS % 0.1 % (1.0-4.0); HEMATOCRIT 33.9 % (37.0-47.0); LYMPH % 25.1 % (27.0-41.0); MEAN CELL VOLUME 88.5 fl (81.0-99.0); MEAN CORPUSCULAR HGB 27.9 pg (27.0-31.0); MEAN CORPUSCULAR HGB CONC 31.6 g/dl (33.0-37.0); MEAN PLATELET VOLUME 10.1 fl (9.6-12.3); MONO # 0.6 10*3/uL (0.1-1.0); NEUT # 5.2 10*3/uL (2.3-7.9); NEUT % 65.9 % (47.0-73.0); PLATELET COUNT AUTOMATED 290 10*3/uL (130-400); RED BLOOD COUNT 3.83 10*6/uL (4.10-5.10); RED CELL DISTRI WIDTH 18.6 % (0-14.5); WHITE BLOOD COUNT 7.9 10*3/uL (4.8-10.8)
[2022-07-05 19:16] LABS: ACT PARTIAL THROMBO TIME 27.3 SECONDS (20.0-32.1); INTERNATIONAL NORM RATIO 1.1 (2.0-3.5)
[2022-07-05 19:37] LABS: BUN 13 mg/dl (9-23); CHLORIDE 96 mmol/L (98-107); LIPASE 29 U/L (12-53); POTASSIUM 3.3 mmol/L (3.4-5.1); SGPT/ALT 47 U/L (10-49); TOTAL PROTEIN 6.4 gm/dL (6.0-8.0)
[2022-07-05 19:45] LABS: ALKALINE PHOSPHATASE 1172 U/L (46-116)
[2022-07-05 21:43] LABS: BASO % 0.5 % (0.0-1.0); EOS % 0.3 % (1.0-4.0); HEMATOCRIT 32.7 % (37.0-47.0); LYMPH # 1.6 10*3/uL (1.3-4.4); LYMPH % 22.3 % (27.0-41.0); MEAN CELL VOLUME 89.8 fl (81.0-99.0); MEAN CORPUSCULAR HGB 28.6 pg (27.0-31.0); MEAN CORPUSCULAR HGB CONC 31.8 g/dl (33.0-37.0); MEAN PLATELET VOLUME 9.9 fl (9.6-12.3); MONO # 0.7 10*3/uL (0.1-1.0); NEUT # 4.9 10*3/uL (2.3-7.9); NEUT % 66.4 % (47.0-73.0); PLATELET COUNT AUTOMATED 252 10*3/uL (130-400); RED BLOOD COUNT 3.64 10*6/uL (4.10-5.10); RED CELL DISTRI WIDTH 18.9 % (0-14.5); WHITE BLOOD COUNT 7.4 10*3/uL (4.8-10.8)
== END 2022-07-06 17:00 | disposition short-term general hospital (02) ==
LOC: ED 17:44
PROVIDERS: Nurse Practitioner Family
DX: K92.2 Gastrointestinal hemorrhage, unspecified (principal); D64.9 Anemia, unspecified; E87.6 Hypokalemia; R74.01 Elevation of levels of liver transaminase levels; E11.9 Type 2 diabetes mellitus without complications; J44.9 Chronic obstructive pulmonary disease, unspecified; F31.9 Bipolar disorder, unspecified; K21.9 Gastro-esophageal reflux disease without esophagitis; K75.9 Inflammatory liver disease, unspecified; K70.30 Alcoholic cirrhosis of liver without ascites; I10 Essential (primary) hypertension; Z79.4 Long term (current) use of insulin; Z91.030 Bee allergy status; Z88.8 Allergy status to other drugs, medicaments and biological substances; Z91.018 Allergy to other foods; Z90.49 Acquired absence of other specified parts of digestive tract; Z90.710 Acquired absence of both cervix and uterus; Z98.890 Other specified postprocedural states; Z87.81 Personal history of (healed) traumatic fracture

== ENCOUNTER 2023-04-28 17:25 | Emergency (ER) | payer OTHER ==
[~2023-04-28] VITALS: Ht 165.1 cm; Wt 77.1 kg
[~2023-04-28 17:25] MED LIST changes: +BUPROPION HYDR150 M1 PO; +GLUCOTROL XL10 MG PO; +GLUCOTROL10 M1 PO; -GLUCOTROL10 MG PO; +GRALISE300 M1 PO; +JARDIANCE10 MG PO; +PREDNISONE10 MG PO; +VITAMIN D325 MC1 PO
[2023-04-28 18:15] LABS: BASO % 0.9 % (0.0-1.0); EOS # 0.1 10*3/uL (0.0-0.4); HEMATOCRIT 36.8 % (37.0-47.0); LYMPH # 0.9 10*3/uL (1.3-4.4); LYMPH % 26.6 % (27.0-41.0); MEAN CELL VOLUME 90.2 fl (81.0-99.0); MEAN CORPUSCULAR HGB 27.7 pg (27.0-31.0); MEAN CORPUSCULAR HGB CONC 30.7 g/dl (33.0-37.0); MEAN PLATELET VOLUME 11.3 fl (9.6-12.3); MONO # 0.3 10*3/uL (0.1-1.0); NEUT # 2.2 10*3/uL (2.3-7.9); NEUT % 62.2 % (47.0-73.0); PLATELET COUNT AUTOMATED 86 10*3/uL (130-400); RED BLOOD COUNT 4.08 10*6/uL (4.10-5.10); RED CELL DISTRI WIDTH 15.6 % (0-14.5); WHITE BLOOD COUNT 3.5 10*3/uL (4.8-10.8)
[2023-04-28 18:23] LABS: ACT PARTIAL THROMBO TIME 26.5 SECONDS (20.0-32.1)
[2023-04-28 18:41] LABS: ALKALINE PHOSPHATASE 401 U/L (46-116); BUN 24 mg/dl (9-23); CHLORIDE 108 mmol/L (98-107); LIPASE 54 U/L (12-53); SGPT/ALT 71 U/L (5-49)
[2023-04-28] MEDS ORDERED: PREDNISONE20 M1 PO (20:39)
[2023-04-28] MEDS ORDERED: AMOX-CLAV 875-1 EACH PO (20:39)
== END 2023-04-28 21:06 | disposition home or self-care (01) ==
LOC: ED 17:25
PROVIDERS: Emergency Medicine
DX: J44.1 Chronic obstructive pulmonary disease with (acute) exacerbation (principal); Z91.030 Bee allergy status; Z91.048 Other nonmedicinal substance allergy status; Z91.018 Allergy to other foods; Z88.8 Allergy status to other drugs, medicaments and biological substances; Z79.899 Other long term (current) drug therapy; Z79.82 Long term (current) use of aspirin; Z79.4 Long term (current) use of insulin; Z90.49 Acquired absence of other specified parts of digestive tract; Z98.890 Other specified postprocedural states; Z90.711 Acquired absence of uterus with remaining cervical stump; Z87.891 Personal history of nicotine dependence

== ENCOUNTER → 2023-05-31 | Outpatient (CLI) | payer OTHER ==
[~2023-05-31] MED LIST changes: +AMOX-CLAV 875-1 EACH PO
== END | disposition home or self-care (01) ==
LOC: MAMMO 01:28
PROVIDERS: ATTEND Internal Medicine
DX: Z12.31 Encounter for screening mammogram for malignant neoplasm of breast (principal)

== ENCOUNTER 2023-06-22 17:38 | Emergency (ER) | payer OTHER ==
[~2023-06-22] VITALS: Ht 167.6 cm; Wt 73.5 kg
[2023-06-22] MEDS ORDERED: CETRAXAL1 EACH OT (18:06)
== END 2023-06-22 18:15 | disposition home or self-care (01) ==
LOC: ED 17:38
DX: H66.93 Otitis media, unspecified, bilateral (principal); H60.93 Unspecified otitis externa, bilateral; F32.A Depression, unspecified; E11.9 Type 2 diabetes mellitus without complications; Z79.4 Long term (current) use of insulin; I10 Essential (primary) hypertension; D64.9 Anemia, unspecified; J44.9 Chronic obstructive pulmonary disease, unspecified; Z91.030 Bee allergy status; Z88.8 Allergy status to other drugs, medicaments and biological substances; Z91.018 Allergy to other foods; Z90.49 Acquired absence of other specified parts of digestive tract; Z98.890 Other specified postprocedural states; Z90.710 Acquired absence of both cervix and uterus; Z87.891 Personal history of nicotine dependence

== ENCOUNTER 2023-09-07 09:54 | Emergency (ER) | payer OTHER ==
[~2023-09-07] VITALS: Ht 165.1 cm; Wt 71.2 kg
[~2023-09-07 09:54] MED LIST changes: +CETRAXAL1 EACH OT
[2023-09-07] MEDS ORDERED: HYDROCODONE-AC1 EAC1 PO (12:22)
[2023-09-07] MEDS ORDERED: Acetaminophen/Hydrocodone 5 MG/325 MG TABLET PO ONE (12:25)
== END 2023-09-07 12:38 | disposition home or self-care (01) ==
LOC: ED 09:54
DX: S42.202A Unspecified fracture of upper end of left humerus, initial encounter for closed fracture (principal); J44.9 Chronic obstructive pulmonary disease, unspecified; F32.A Depression, unspecified; I11.0 Hypertensive heart disease with heart failure; I50.30 Unspecified diastolic (congestive) heart failure; K21.9 Gastro-esophageal reflux disease without esophagitis; Z91.030 Bee allergy status; Z91.048 Other nonmedicinal substance allergy status; Z91.018 Allergy to other foods; Z79.2 Long term (current) use of antibiotics; Z79.899 Other long term (current) drug therapy; Z79.82 Long term (current) use of aspirin; Z79.4 Long term (current) use of insulin; Z98.890 Other specified postprocedural states; Z90.710 Acquired absence of both cervix and uterus; Z90.49 Acquired absence of other specified parts of digestive tract; Z87.891 Personal history of nicotine dependence; W18.39XA Other fall on same level, initial encounter; Y93.89 Activity, other specified; Y92.89 Other specified places as the place of occurrence of the external cause; Y99.8 Other external cause status

== ENCOUNTER → 2023-09-27 | Outpatient (CLI) | payer OTHER ==
[~2023-09-27] MED LIST changes: +HYDROCODONE-AC1 EAC1 PO
== END | disposition home or self-care (01) ==
LOC: ORTHO 02:05
PROVIDERS: ATTEND Orthopaedic Surgery
DX: M19.012 Primary osteoarthritis, left shoulder (principal)

== ENCOUNTER → 2023-10-18 | Outpatient (CLI) | payer OTHER | END | disposition home or self-care (01) | LOC: ORTHO 00:24 | PROVIDERS: ATTEND Orthopaedic Surgery | DX: S42.212D Unspecified displaced fracture of surgical neck of left humerus, subsequent encounter for fracture with routine healing (principal); S42.202D Unspecified fracture of upper end of left humerus, subsequent encounter for fracture with routine healing; X58.XXXD Exposure to other specified factors, subsequent encounter ==

== ENCOUNTER 2023-11-01 14:29 | Emergency (ER) | payer OTHER ==
[~2023-11-01] VITALS: Ht 167.6 cm; Wt 77.1 kg
[2023-11-01 16:33] LABS: BASO % 0.4 % (0.0-1.0); EOS # 0.1 10*3/uL (0.0-0.4); EOS % 0.6 % (1.0-4.0); HEMATOCRIT 38.5 % (37.0-47.0); LYMPH # 0.6 10*3/uL (1.3-4.4); LYMPH % 8.1 % (27.0-41.0); MEAN CELL VOLUME 94.6 fl (81.0-99.0); MEAN CORPUSCULAR HGB 31.4 pg (27.0-31.0); MEAN CORPUSCULAR HGB CONC 33.2 g/dl (33.0-37.0); MEAN PLATELET VOLUME 11.7 fl (9.6-12.3); MONO # 0.5 10*3/uL (0.1-1.0); NEUT # 6.5 10*3/uL (2.3-7.9); NEUT % 84.3 % (47.0-73.0); PLATELET COUNT AUTOMATED 92 10*3/uL (130-400); RED BLOOD COUNT 4.07 10*6/uL (4.10-5.10); RED CELL DISTRI WIDTH 14.9 % (0-14.5); WHITE BLOOD COUNT 7.7 10*3/uL (4.8-10.8)
[2023-11-01 16:47] LABS: ALKALINE PHOSPHATASE 527 U/L (46-116); BUN 16 mg/dl (9-23); CHLORIDE 108 mmol/L (98-107); POTASSIUM 4.7 mmol/L (3.4-5.1); SGPT/ALT 69 U/L (5-49)
== END 2023-11-01 19:22 | disposition home or self-care (01) ==
LOC: ED 14:29
PROVIDERS: Emergency Medicine
DX: S80.01XA Contusion of right knee, initial encounter (principal); R56.9 Unspecified convulsions; R53.1 Weakness; E11.649 Type 2 diabetes mellitus with hypoglycemia without coma; D64.9 Anemia, unspecified; J44.9 Chronic obstructive pulmonary disease, unspecified; F31.9 Bipolar disorder, unspecified; K21.9 Gastro-esophageal reflux disease without esophagitis; I11.0 Hypertensive heart disease with heart failure; I50.9 Heart failure, unspecified; E78.00 Pure hypercholesterolemia, unspecified; E87.0 Hyperosmolality and hypernatremia; Z91.030 Bee allergy status; Z91.048 Other nonmedicinal substance allergy status; Z79.4 Long term (current) use of insulin; Z88.8 Allergy status to other drugs, medicaments and biological substances; Z91.018 Allergy to other foods; Z90.49 Acquired absence of other specified parts of digestive tract; Z90.710 Acquired absence of both cervix and uterus; Z98.890 Other specified postprocedural states; Z87.891 Personal history of nicotine dependence; W19.XXXA Unspecified fall, initial encounter; Y93.89 Activity, other specified; Y92.009 Unspecified place in unspecified non-institutional (private) residence as the place of occurrence of the external cause; Y99.8 Other external cause status

== ENCOUNTER 2023-12-14 13:49 | Emergency (ER) | payer OTHER ==
[~2023-12-14] VITALS: Ht 167.6 cm; Wt 72.6 kg
[2023-12-14] MEDS ORDERED: Acetaminophen/Oxycodone 5 MG/325 MG TABLET PO ONE (14:55)
[2023-12-14] MEDS ORDERED: MELOXICAM15 MG PO (16:10)
== END 2023-12-14 16:15 | disposition home or self-care (01) ==
LOC: ED 13:49
DX: M79.602 Pain in left arm (principal); F32.A Depression, unspecified; E11.9 Type 2 diabetes mellitus without complications; Z79.4 Long term (current) use of insulin; I10 Essential (primary) hypertension; D64.9 Anemia, unspecified; Z91.030 Bee allergy status; Z91.048 Other nonmedicinal substance allergy status; Z91.018 Allergy to other foods; Z88.8 Allergy status to other drugs, medicaments and biological substances; Z98.890 Other specified postprocedural states; Z90.49 Acquired absence of other specified parts of digestive tract; Z90.710 Acquired absence of both cervix and uterus; Z87.891 Personal history of nicotine dependence

== ENCOUNTER 2024-01-08 13:19 | Emergency (ER) | payer OTHER ==
[~2024-01-08] VITALS: Ht 167.6 cm; Wt 72.6 kg
[~2024-01-08 13:19] MED LIST changes: +MELOXICAM15 MG PO
[2024-01-08] MEDS ORDERED: NAPROXEN 250 MG TAB PO ONE (13:55)
[2024-01-08] MEDS ORDERED: METHOCARBAMOL 500 MG TAB PO ONE (13:55)
[2024-01-08] MEDS ORDERED: METHOCARBAMOL500 M1 PO (15:15)
[2024-01-08] MEDS ORDERED: NAPROSYN500 MG PO (15:15)
== END 2024-01-08 15:28 | disposition home or self-care (01) ==
LOC: ED 13:19
DX: S39.011A Strain of muscle, fascia and tendon of abdomen, initial encounter (principal); R07.81 Pleurodynia; Z91.030 Bee allergy status; Z91.048 Other nonmedicinal substance allergy status; Z88.8 Allergy status to other drugs, medicaments and biological substances; Z91.018 Allergy to other foods; Z90.49 Acquired absence of other specified parts of digestive tract; Z98.890 Other specified postprocedural states; Z90.710 Acquired absence of both cervix and uterus; Z87.891 Personal history of nicotine dependence; X50.0XXA Overexertion from strenuous movement or load, initial encounter; Y93.89 Activity, other specified; Y92.89 Other specified places as the place of occurrence of the external cause; Y99.8 Other external cause status

== ENCOUNTER 2024-02-10 12:21 | Emergency (ER) | payer OTHER ==
[~2024-02-10] VITALS: Ht 167.6 cm; Wt 73.5 kg
[~2024-02-10 12:21] MED LIST changes: +METHOCARBAMOL500 M1 PO
[2024-02-10] MEDS ORDERED: Albuterol Sulfate 2.5 MG/3 ML VIAL NEB ONE (12:30)
[2024-02-10] MEDS ORDERED: AZITHROMYCIN 250 MG TAB PO ONE (12:35)
[2024-02-10] MEDS ORDERED: MAGNESIUM SULFATE 50 ML IV ONE (12:35)
[2024-02-10] MEDS ORDERED: methylPREDNISolone sod succ 125 MG VIAL IV ONE (12:35)
[2024-02-10 13:00] LABS: BASO % 0.5 % (0.0-1.0); EOS # 0.1 10*3/uL (0.0-0.4); EOS % 1.8 % (1.0-4.0); HEMATOCRIT 36.7 % (37.0-47.0); MEAN CELL VOLUME 95.6 fl (81.0-99.0); MEAN CORPUSCULAR HGB 29.4 pg (27.0-31.0); MEAN CORPUSCULAR HGB CONC 30.8 g/dl (33.0-37.0); MEAN PLATELET VOLUME 11.1 fl (9.6-12.3); MONO # 0.4 10*3/uL (0.1-1.0); MONO % 7.5 % (3.0-9.0); NEUT % 73.7 % (47.0-73.0); PLATELET COUNT AUTOMATED 89 10*3/uL (130-400); RED BLOOD COUNT 3.84 10*6/uL (4.10-5.10); RED CELL DISTRI WIDTH 13.8 % (0-14.5); WHITE BLOOD COUNT 5.5 10*3/uL (4.8-10.8)
[2024-02-10 13:22] LABS: BUN 21 mg/dl (9-23); CHLORIDE 109 mmol/L (98-107); POTASSIUM 4.1 mmol/L (3.4-5.1)
[2024-02-10] MEDS ORDERED: PREDNISONE20 M1 PO (14:00)
[2024-02-10] MEDS ORDERED: AVPAK AZITHROM250 M1 PO (14:00)
== END 2024-02-10 14:02 | disposition home or self-care (01) ==
LOC: ED 12:21
PROVIDERS: Emergency Medicine
DX: J44.1 Chronic obstructive pulmonary disease with (acute) exacerbation (principal); F31.9 Bipolar disorder, unspecified; E78.5 Hyperlipidemia, unspecified; E11.9 Type 2 diabetes mellitus without complications; Z79.4 Long term (current) use of insulin; I10 Essential (primary) hypertension; D64.9 Anemia, unspecified; Z91.030 Bee allergy status; Z91.048 Other nonmedicinal substance allergy status; Z91.018 Allergy to other foods; Z88.8 Allergy status to other drugs, medicaments and biological substances; Z90.49 Acquired absence of other specified parts of digestive tract; Z98.890 Other specified postprocedural states; Z90.710 Acquired absence of both cervix and uterus; Z87.891 Personal history of nicotine dependence

== ENCOUNTER 2024-04-24 08:37 | Emergency (ER) | payer OTHER ==
[~2024-04-24] VITALS: Ht 167.6 cm; Wt 74.8 kg
[~2024-04-24 08:37] MED LIST changes: +AVPAK AZITHROM250 M1 PO
[2024-04-24] MEDS ORDERED: Acetaminophen/Oxycodone 5 MG/325 MG TABLET PO ONE (09:20)
[2024-04-24 09:33] LABS: BASO % 0.4 % (0.0-1.0); EOS # 0.1 10*3/uL (0.0-0.4); EOS % 1.9 % (1.0-4.0); HEMATOCRIT 35.7 % (37.0-47.0); MEAN CELL VOLUME 92.5 fl (81.0-99.0); MEAN CORPUSCULAR HGB 27.7 pg (27.0-31.0); MEAN PLATELET VOLUME 10.6 fl (9.6-12.3); MONO # 0.4 10*3/uL (0.1-1.0); MONO % 9.1 % (3.0-9.0); NEUT # 3.4 10*3/uL (2.3-7.9); NEUT % 70.7 % (47.0-73.0); PLATELET COUNT AUTOMATED 78 10*3/uL (130-400); RED BLOOD COUNT 3.86 10*6/uL (4.10-5.10); RED CELL DISTRI WIDTH 15.6 % (0-14.5); WHITE BLOOD COUNT 4.9 10*3/uL (4.8-10.8)
[2024-04-24 09:50] LABS: BUN 19 mg/dl (9-23); CHLORIDE 107 mmol/L (98-107); POTASSIUM 4.8 mmol/L (3.4-5.1)
[2024-04-24] MEDS ORDERED: SEPTDS PO ×2 (10:45→10:55)
[2024-04-26] MEDS ORDERED: MELOXICAM15 MG PO (16:36)
[2024-04-26] MEDS ORDERED: GABAPENTIN400 MG PO (16:36)
[2024-04-26] MEDS ORDERED: BUSPIRONE HCL10 MG PO (16:38)
[2024-04-26] MEDS ORDERED: JARDIANCE25 MG PO (16:39)
[2024-04-26] MEDS ORDERED: PANTOPRAZOLE SO40 MG PO (16:40)
== END 2024-04-24 10:49 | disposition home or self-care (01) ==
LOC: ED 08:37
PROVIDERS: Internal Medicine
DX: S90.921A Unspecified superficial injury of right foot, initial encounter (principal); E11.9 Type 2 diabetes mellitus without complications; F32.A Depression, unspecified; I10 Essential (primary) hypertension; D64.9 Anemia, unspecified; Z86.73 Personal history of transient ischemic attack (TIA), and cerebral infarction without residual deficits; Z79.4 Long term (current) use of insulin; Z87.891 Personal history of nicotine dependence; Z91.030 Bee allergy status; Z88.8 Allergy status to other drugs, medicaments and biological substances; Z91.018 Allergy to other foods; Z90.49 Acquired absence of other specified parts of digestive tract; Z98.890 Other specified postprocedural states; Z90.710 Acquired absence of both cervix and uterus; X58.XXXA Exposure to other specified factors, initial encounter; Y93.89 Activity, other specified; Y92.89 Other specified places as the place of occurrence of the external cause; Y99.8 Other external cause status

== ENCOUNTER 2024-06-10 11:25 | Emergency (ER) | payer OTHER ==
[~2024-06-10] VITALS: Ht 167.6 cm; Wt 81.6 kg
[~2024-06-10 11:25] MED LIST changes: +BUSPIRONE HCL10 MG PO; +GABAPENTIN400 MG PO; +JARDIANCE25 MG PO; +PANTOPRAZOLE SO40 MG PO; +SEPTDS PO; +XARELTO10 MG PO
[2024-06-10] MEDS ORDERED: Albuterol Sulfate 2.5 MG/3 ML VIAL NEB ONE (11:50)
[2024-06-10] MEDS ORDERED: MAGNESIUM SULFATE 50 ML IV ONE (11:50)
[2024-06-10] MEDS ORDERED: AZITHROMYCIN 250 MG TAB PO ONE (11:50)
[2024-06-10] MEDS ORDERED: methylPREDNISolone sod succ 125 MG VIAL IV ONE (11:50)
[2024-06-10 12:09] LABS: BASO % 0.6 % (0.0-1.0); EOS # 0.1 10*3/uL (0.0-0.4); EOS % 2.4 % (1.0-4.0); HEMATOCRIT 34.4 % (37.0-47.0); MEAN CELL VOLUME 87.5 fl (81.0-99.0); MEAN CORPUSCULAR HGB 26.5 pg (27.0-31.0); MEAN CORPUSCULAR HGB CONC 30.2 g/dl (33.0-37.0); MEAN PLATELET VOLUME 11.8 fl (9.6-12.3); MONO # 0.4 10*3/uL (0.1-1.0); MONO % 8.1 % (3.0-9.0); NEUT # 3.5 10*3/uL (2.3-7.9); NEUT % 69.8 % (47.0-73.0); PLATELET COUNT AUTOMATED 98 10*3/uL (130-400); RED BLOOD COUNT 3.93 10*6/uL (4.10-5.10); RED CELL DISTRI WIDTH 15.8 % (0-14.5)
[2024-06-10 12:27] LABS: POTASSIUM 4.2 mmol/L (3.4-5.1)
== END 2024-06-10 13:12 | disposition home or self-care (01) ==
LOC: ED 11:25
PROVIDERS: Emergency Medicine
DX: J44.1 Chronic obstructive pulmonary disease with (acute) exacerbation (principal); Z20.822 Contact with and (suspected) exposure to COVID-19; F31.9 Bipolar disorder, unspecified; F41.9 Anxiety disorder, unspecified; I10 Essential (primary) hypertension; E78.5 Hyperlipidemia, unspecified; Z91.030 Bee allergy status; Z88.8 Allergy status to other drugs, medicaments and biological substances; Z91.018 Allergy to other foods; Z79.899 Other long term (current) drug therapy; Z79.82 Long term (current) use of aspirin; Z79.4 Long term (current) use of insulin; Z79.84 Long term (current) use of oral hypoglycemic drugs; Z90.49 Acquired absence of other specified parts of digestive tract; Z90.710 Acquired absence of both cervix and uterus; Z98.890 Other specified postprocedural states; Z87.891 Personal history of nicotine dependence

== ENCOUNTER 2024-10-17 10:50 | Emergency (ER) | payer OTHER ==
[~2024-10-17] VITALS: Wt 77.1 kg
== END 2024-10-17 12:18 | disposition home or self-care (01) ==
LOC: ED 10:50
DX: S80.11XA Contusion of right lower leg, initial encounter (principal); R22.41 Localized swelling, mass and lump, right lower limb; F32.A Depression, unspecified; E11.9 Type 2 diabetes mellitus without complications; I10 Essential (primary) hypertension; G47.30 Sleep apnea, unspecified; Z87.891 Personal history of nicotine dependence; Z90.710 Acquired absence of both cervix and uterus; Z90.49 Acquired absence of other specified parts of digestive tract; Z98.890 Other specified postprocedural states; Z88.8 Allergy status to other drugs, medicaments and biological substances; Z91.030 Bee allergy status; Z91.018 Allergy to other foods; X58.XXXA Exposure to other specified factors, initial encounter; Y93.89 Activity, other specified; Y92.89 Other specified places as the place of occurrence of the external cause; Y99.8 Other external cause status

== ENCOUNTER 2024-11-14 13:26 | Emergency (ER) | payer OTHER ==
[~2024-11-14] VITALS: Ht 167.6 cm; Wt 86.2 kg
[2024-11-14] MEDS ORDERED: Acetaminophen/Oxycodone 5 MG/325 MG TABLET PO ONE (15:35)
== END 2024-11-14 15:54 | disposition left against medical advice (07) ==
LOC: ED 13:26
DX: S32.029A Unspecified fracture of second lumbar vertebra, initial encounter for closed fracture (principal); F32.A Depression, unspecified; E11.9 Type 2 diabetes mellitus without complications; I10 Essential (primary) hypertension; G47.30 Sleep apnea, unspecified; Z91.030 Bee allergy status; Z91.018 Allergy to other foods; Z88.8 Allergy status to other drugs, medicaments and biological substances; Z98.890 Other specified postprocedural states; Z90.49 Acquired absence of other specified parts of digestive tract; Z90.710 Acquired absence of both cervix and uterus; V89.9XXA Person injured in unspecified vehicle accident, initial encounter; Y93.89 Activity, other specified; Y92.410 Unspecified street and highway as the place of occurrence of the external cause; Y99.8 Other external cause status

== ENCOUNTER 2024-12-10 08:54 | Emergency (ER) | payer OTHER ==
[~2024-12-10] VITALS: Ht 167.6 cm; Wt 81.6 kg
[2024-12-10] MEDS ORDERED: CEFDINIR 300 MG CAP PO ONE (10:10)
[2024-12-10] MEDS ORDERED: OMNICEF300 MG PO (10:31)
[2024-12-10] MEDS ORDERED: DOXYCYCLINE HY100 M3 PO (10:31)
== END 2024-12-10 10:48 | disposition home or self-care (01) ==
LOC: ED 08:54
DX: J18.9 Pneumonia, unspecified organism (principal); F32.A Depression, unspecified; E11.9 Type 2 diabetes mellitus without complications; I10 Essential (primary) hypertension; G47.30 Sleep apnea, unspecified; Z87.891 Personal history of nicotine dependence; Z90.49 Acquired absence of other specified parts of digestive tract; Z90.710 Acquired absence of both cervix and uterus; Z91.030 Bee allergy status; Z91.018 Allergy to other foods; Z88.8 Allergy status to other drugs, medicaments and biological substances; Z20.822 Contact with and (suspected) exposure to COVID-19

== ENCOUNTER 2025-01-10 16:04 | Emergency (ER) | payer OTHER ==
[~2025-01-10] VITALS: Ht 167.6 cm; Wt 90.7 kg
[~2025-01-10 16:04] MED LIST changes: +DOXYCYCLINE HY100 M3 PO
[2025-01-10] MEDS ORDERED: Dexamethasone Sodium Phospha 20 MG/5 ML VIAL IM ONE (16:15)
[2025-01-10] MEDS ORDERED: METHOCARBAMOL750 M1 PO (17:23)
[2025-01-10] MEDS ORDERED: VENT7GM INH (17:23)
[2025-01-10] MEDS ORDERED: PREDNISONE20 M1 PO (17:23)
== END 2025-01-10 18:03 | disposition home or self-care (01) ==
LOC: ED 16:04
DX: J44.1 Chronic obstructive pulmonary disease with (acute) exacerbation (principal); M94.0 Chondrocostal junction syndrome [Tietze]; E11.9 Type 2 diabetes mellitus without complications; I10 Essential (primary) hypertension; F32.A Depression, unspecified; Z87.891 Personal history of nicotine dependence; Z90.49 Acquired absence of other specified parts of digestive tract; Z90.710 Acquired absence of both cervix and uterus; Z98.890 Other specified postprocedural states; Z91.030 Bee allergy status; Z88.8 Allergy status to other drugs, medicaments and biological substances; Z91.018 Allergy to other foods; Z20.822 Contact with and (suspected) exposure to COVID-19